=== PATIENT | male | born 1965 | race Caucasian/White ===

== ENCOUNTER 2016-04-27 16:07 | Emergency (ER) | payer MEDICARE ==
[2016-04-27 16:35] VITALS: BP 176/104; TEMP 98.4; O2SAT 96
[2016-04-27] MEDS ORDERED: ORPHENADRINE CITRATE 30 MG/ML AMP IM ONE (17:32)
[2016-04-27] MEDS ORDERED: KETOROLAC TROMETHAMINE INJ 60 MG/2 ML VIAL IM ONE (17:32)
--- NOTE | 2016-04-27 18:01 | ED.PDOC ---
History of Present Illness - General Chief Complaint: Upper Extremity Injury Stated Complaint: right shoulder pain Time Seen by Provider: 04/27/16 17:31 Source: patient, RN notes reviewed, Vital Signs reviewed Exam Limitations: no limitations - History of Present Illness Initial Comments: This 50 y/o male has had pain under his right scapula for the past 2 days. He was throwing brush into a truck several days ago. The pain started shortly thereafter. Patient rates it a 10/10. He denies any shortness of breath. Movement makes the pain worse. Timing/Duration: 1 week, getting worse Severity: severe Improving Factors: other - holding right arm up over head Worsening Factors: movement Associated Symptoms: denies symptoms Allergies/Adverse Reactions: Allergies NO KNOWN ALLERGY Allergy (Verified 01/15/16 16:05) Home Medications: Ambulatory Orders Colchicine [Colcrys] 0.6 mg PO BID 01/15/16 DULoxetine HCL [Cymbalta] 30 mg PO DAILY 01/15/16 Metoprolol Succinate [Toprol XL] 100 mg PO DAILY 01/15/16 Olmesartan Medoxomil-Hydrochlo [Benicar Hct] 1 tab PO DAILY 04/27/16 amLODIPine BESYLATE [Norvasc] 10 mg PO DAILY 04/27/16 Review of Systems - Review of Systems Constitutional: States: no symptoms reported EENTM: States: no symptoms reported Respiratory: States: no symptoms reported Cardiology: States: no symptoms reported Gastrointestinal/Abdominal: States: no symptoms reported Genitourinary: States: no symptoms reported Musculoskeletal: States: back pain, muscle pain Skin: States: no symptoms reported Neurological: States: no symptoms reported Endocrine: States: no symptoms reported Hematologic/Lymphatic: States: no symptoms reported All other Systems: Reviewed and Negative Past Medical History (General) - Patient Medical History Hx Seizures: No Hx Stroke: No Hx Dementia: No Hx Asthma: No Hx of COPD: No Hx Cardiac Disorders: No Hx Congestive Heart Failure: No Hx Pacemaker: No Hx Hypertension: Yes Hx Thyroid Disease: No Hx Diabetes: No Hx Gastroesophageal Reflux: No Hx Renal Disease: No Hx Cancer: No Hx of HIV: No Hx Hepatitis C: No Hx MRSA: No MRSA Source:: Wound - Vaccination History Hx Tetanus, Diphtheria Vaccination: Yes Hx Influenza Vaccination: No Hx Pneumococcal Vaccination: No - Social History Hx Tobacco Use: No Hx Chewing Tobacco Use: Yes Hx Alcohol Use: No Hx Substance Use: No Hx Substance Use Treatment: No Hx Depression: No Hx Physical Abuse: No Hx Emotional Abuse: No Hx Suspected Abuse: No - Female History Patient : No Family Medical History - Family History Maternal Family History: Unknown Name: mother Living Status: Cause of : cancer Hx Family Cancer: Yes - lung Paternal Family History: Unknown Name: father Living Status: Cause of : cancer Hx Family Cancer: Yes - lung and liver Physical Exam - Physical Exam General Appearance: Alert, Obvious distress Eye Exam: bilateral normal Ears, Nose, Throat: normal ENT inspection Neck: non-tender, full range of motion, supple, normal inspection Respiratory: chest non-tender, lungs clear, normal breath sounds, no respiratory distress, no accessory muscle use Cardiovascular/Chest: regular rate, rhythm, no edema, no gallop, no murmur Gastrointestinal/Abdominal: normal bowel sounds, soft Back Exam: no vertebral tenderness, muscle spasm - On right just inferior to angle of scapula Extremity: normal range of motion, normal inspection Neurologic: no motor/sensory deficits, alert, normal mood/affect, oriented x 3 Skin Exam: normal color, warm/dry Progress - EKG/XRAY/CT XRAY: chest Xray Comments: No acute process Departure - Departure Clinical Impression: Spasm of back muscles Upper back strain Qualifiers: Encounter type: initial encounter Qualifier Code: (S29.012A) Strain of muscle and tendon of back wall of thorax, initial encounter Disposition: Left Against Medical Advice Departure Forms: ED Discharge - Pt. Copy, Patient Portal Self Enrollment Referrals: Mark Mendoza MD [Primary Care Provider] - 1-2 Weeks Home Medications: Ambulatory Orders Colchicine [Colcrys] 0.6 mg PO BID 01/15/16 DULoxetine HCL [Cymbalta] 30 mg PO DAILY 01/15/16 Metoprolol Succinate [Toprol XL] 100 mg PO DAILY 01/15/16 Olmesartan Medoxomil-Hydrochlo [Benicar Hct] 1 tab PO DAILY 04/27/16 amLODIPine BESYLATE [Norvasc] 10 mg PO DAILY 04/27/16
--- NOTE | 2016-04-27 19:15 | RAD ---
EXAM DESCRIPTION: XR CHEST 2 VIEWS CLINICAL HISTORY: 50 y/o Mback pain under shoulder blade COMPARISON: 01/15/2016. FINDINGS: The cardiomediastinal silhouette appears unremarkable. No consolidating infiltrates or pleural effusions. No pneumothorax. No significant changes are visualized compared to the previous study. IMPRESSION: No acute abnormality is identified. Electronically signed by: Mateo Montes MD 04/27/2016 19:12
[2016-04-27] MEDS ORDERED: COLCHICINE 0.6 MG TAB PO SCH (21:00)
[2016-04-28] MEDS ORDERED: amLODIPine BESYLATE 5 MG TAB PO SCH (09:00)
[2016-04-28] MEDS ORDERED: OLMESARTAN MEDOXOMIL HYDROCHLO PO SCH (09:00)
[2016-04-28] MEDS ORDERED: METOPROLOL SUCCINATE XL 100 MG TAB PO SCH (09:00)
[2016-04-28] MEDS ORDERED: DULoxetine HCL 30 MG CAP PO SCH (09:00)
== END 2016-04-27 20:05 | disposition left against medical advice (07) ==
LOC: ER 16:07
DX: S29.012A Strain of muscle and tendon of back wall of thorax, initial encounter (principal); M62.830 Muscle spasm of back; I10 Essential (primary) hypertension; X58.XXXA Exposure to other specified factors, initial encounter; Z79.899 Other long term (current) drug therapy; Z87.891 Personal history of nicotine dependence; Z80.1 Family history of malignant neoplasm of trachea, bronchus and lung; Z80.8 Family history of malignant neoplasm of other organs or systems
CPT/HCPCS: 71020; J1885; J2360

== ENCOUNTER 2016-04-29 12:10 | Emergency (ER) | payer MEDICARE ==
[2016-04-29 12:28] VITALS: TEMP 98.4
[2016-04-29] MEDS ORDERED: KETOROLAC TROMETHAMINE INJ 60 MG/2 ML VIAL IM ONE (13:01)
[2016-04-29] MEDS ORDERED: methylPREDNISolone SODIUM SUC 125 MG/2 ML VIAL IM ONE (13:17)
[2016-04-29] MEDS ORDERED: ORPHENADRINE CITRATE 30 MG/ML AMP IM ONE (13:17)
--- NOTE | 2016-04-29 13:30 | ED.PDOC ---
History of Present Illness - General Chief Complaint: General Stated Complaint: rt shoulder pain Time Seen by Provider: 04/29/16 12:52 Source: patient, RN notes reviewed, Vital Signs reviewed Exam Limitations: no limitations - History of Present Illness Initial Comments: Patient is a 50 y/o male with a history of gout. He was working throwing brush into a truck and several days later had complaints of pain on the right underneath the shoulder blade. He was here for treatment 2 days ago, but left AMA. The pain has since worsened, and he thinks his gout has set in. The pain is a 10/10, a fiery pain. He can only hold his right arm abducted, over his head. Timing/Duration: getting worse, other - 3-4 days Severity: severe Improving Factors: other - Holding arm abducted with forearm over head Associated Symptoms: denies symptoms Allergies/Adverse Reactions: Allergies NO KNOWN ALLERGY Allergy (Verified 01/15/16 16:05) Home Medications: Ambulatory Orders Colchicine [Colcrys] 0.6 mg PO BID 01/15/16 DULoxetine HCL [Cymbalta] 30 mg PO DAILY 01/15/16 Metoprolol Succinate [Toprol XL] 100 mg PO DAILY 01/15/16 Olmesartan Medoxomil-Hydrochlo [Benicar Hct] 1 tab PO DAILY 04/27/16 amLODIPine BESYLATE [Norvasc] 10 mg PO DAILY 04/27/16 predniSONE [Prednisone] 40 mg PO DAILY #8 tab 04/29/16 Review of Systems - Review of Systems Constitutional: States: no symptoms reported EENTM: States: no symptoms reported Respiratory: States: no symptoms reported Cardiology: States: no symptoms reported Gastrointestinal/Abdominal: States: no symptoms reported Genitourinary: States: no symptoms reported Musculoskeletal: States: back pain, gout, muscle pain Skin: States: no symptoms reported Neurological: States: no symptoms reported Endocrine: States: no symptoms reported Hematologic/Lymphatic: States: no symptoms reported All other Systems: Reviewed and Negative Past Medical History (General) - Patient Medical History Hx Seizures: No Hx Stroke: No Hx Dementia: No Hx Asthma: No Hx of COPD: No Hx Cardiac Disorders: No Hx Congestive Heart Failure: No Hx Pacemaker: No Hx Hypertension: Yes Hx Thyroid Disease: No Hx Diabetes: No Hx Gastroesophageal Reflux: No Hx Renal Disease: No Hx Cancer: No Hx of HIV: No Hx Hepatitis C: No Hx MRSA: No MRSA Source:: Wound - Vaccination History Hx Tetanus, Diphtheria Vaccination: Yes Hx Influenza Vaccination: No Hx Pneumococcal Vaccination: No - Social History Hx Tobacco Use: No Hx Chewing Tobacco Use: Yes Hx Alcohol Use: No Hx Substance Use: No Hx Substance Use Treatment: No Hx Depression: No Feels Threatened In Home Enviroment: No Feels Threatened In a Relationship: No Hx Physical Abuse: No Hx Emotional Abuse: No Hx Suspected Abuse: No - Female History Patient : No Family Medical History - Family History Maternal Family History: Unknown Name: mother Living Status: Cause of : cancer Hx Family Cancer: Yes - lung Paternal Family History: Unknown Name: father Living Status: Cause of : cancer Hx Family Cancer: Yes - lung and liver Physical Exam - Physical Exam General Appearance: Agitated, Alert, Obvious distress Eye Exam: bilateral normal Ears, Nose, Throat: hearing grossly normal, normal ENT inspection Neck: full range of motion, supple, normal inspection Respiratory: chest non-tender, lungs clear, normal breath sounds, no respiratory distress, no accessory muscle use Cardiovascular/Chest: regular rate, rhythm, no edema, no gallop, no murmur Gastrointestinal/Abdominal: normal bowel sounds, soft Back Exam: no vertebral tenderness, muscle spasm - inferior to spine of scapula on the right, other Extremity: normal range of motion - but with pain in the back with adduction of the right arm, non-tender Neurologic: alert, normal mood/affect, oriented x 3 Skin Exam: normal color, warm/dry Progress - Results/Orders Results/Orders: 04/29/16 04/29/16 12:24 13:11 Temperature 98.4 F Pulse Rate [lt 91 H 78 radial] Respiratory 20 20 Rate Blood Pressure 178/101 198/105 [lt arm] O2 Sat by Pulse 95 98 Oximetry Laboratory Results Uric Acid 9.1 mg/dL (2.6-7.2) H 04/29/16 13:05 - Consult/PCP Time Called: 13:15 Consult/PCP: Emma Tomas M.D., Rheumatology Consult Reason/Comments: Per patient's request--prednisone 40 mg x 4 days Departure - Departure Clinical Impression: Acute gouty arthritis, Muscle spasm of back ICD-10 Supporting Text: Upper right Time of Disposition: 13:39 Disposition: Discharge to Home or Self Care Condition: Fair Departure Forms: ED Discharge - Pt. Copy, Patient Portal Self Enrollment Diet: resume usual diet Prescriptions: predniSONE [Prednisone] 40 mg PO DAILY #8 tab Home Medications: Ambulatory Orders Colchicine [Colcrys] 0.6 mg PO BID 01/15/16 DULoxetine HCL [Cymbalta] 30 mg PO DAILY 01/15/16 Metoprolol Succinate [Toprol XL] 100 mg PO DAILY 01/15/16 Olmesartan Medoxomil-Hydrochlo [Benicar Hct] 1 tab PO DAILY 04/27/16 amLODIPine BESYLATE [Norvasc] 10 mg PO DAILY 04/27/16 predniSONE [Prednisone] 40 mg PO DAILY #8 tab 04/29/16 Additional Instructions: If pain persists, follow up with PCP or Dr. Tomas.
[2016-04-29 13:34] VITALS: O2SAT 98
[2016-04-29 13:47] VITALS: BP 195/101
== END 2016-04-29 13:46 | disposition home or self-care (01) ==
LOC: ER 12:10
DX: M10.9 Gout, unspecified (principal); M62.830 Muscle spasm of back; Z80.1 Family history of malignant neoplasm of trachea, bronchus and lung; Z87.891 Personal history of nicotine dependence; Z79.899 Other long term (current) drug therapy; I10 Essential (primary) hypertension
CPT/HCPCS: 36415; 84550; J1885; J2360; J2930

== ENCOUNTER 2016-06-03 18:09 | Emergency (ER) | payer MEDICARE ==
[2016-06-03] MEDS ORDERED: ASPIRIN TABLET 325 MG TAB PO ONE (18:22)
[2016-06-03] MEDS ORDERED: HYDROmorphone HCL INJ 2 MG/ML VIAL IV SCH ×3 (18:30→22:00)
[2016-06-03] MEDS ORDERED: POTASSIUM CHLORIDE ELIXIR 20 MEQ/15 ML UD PO ONE (19:25)
[2016-06-03] MEDS ORDERED: NITROGLYCERIN 0.4 MG 25 EA TAB SL ONE ×2 (19:25→20:30)
[2016-06-03] MEDS ORDERED: METOPROLOL TARTRATE INJ 5 MG/5 ML VIAL IV ONE (19:46)
--- NOTE | 2016-06-03 20:01 | RAD ---
NAME: FAUSTO MELENDEZPROCEDURE: XR CHEST 2 VIEWSORDER DATE: 06/03/2016 6:21 PM CSTACCESSION NUMBER: [id number] CLINICAL HISTORY: htn, sob INDICATION: Same as above COMPARISON: 04/27/2016 TECHNIQUE: PA and and lateral chest radiographs were obtained. FINDINGS: The lung nicolas are well inflated. There are no discrete airspace infiltrates, pneumothoraces or pleural effusions. The pulmonary vascularity is normal The cardiomediastinal silhouette is unremarkable for patient's age and sex. IMPRESSION: There is no acute pleural-parenchymal process seen in the imaged lung nicolas. Place of interpretation: [facility]. Electronically signed by: Sukhjinder Cheng MD 06/03/2016 6:37 PM GLASS SAGGER
--- NOTE | 2016-06-03 20:29 | ED.PDOC ---
History of Present Illness - General Chief Complaint: Cardiovascular Problem Stated Complaint: chest tightness, high bp Time Seen by Provider: 06/03/16 18:21 Source: patient Exam Limitations: no limitations - History of Present Illness Initial Comments: the patient is a 51-year-old male presented emergency room secondary to elevated blood pressures today with associated mild to moderate headache and sensation of shortness of breath and pressure in his chest. No chest pain. Pressure has gotten a little worse over the last few hours prior to arrival. He had a similar episode back in December and was supposed to have gotten a stress test howver left the hospital before that could be done and did not get it done as an outpatient. He does have a long-standing history of significant hypertension with recent medication changes. He has not missed doses of his medications but he does take them all in the morning. When he was sent to [facility] in December, he apparently had MRI/MRA performed of his brain and saw Dr. Cerda at that time. He says no acute pathology was found at that time. Timing/Duration: 4-6 hours, constant, getting worse Severity: moderate Improving Factors: nothing Worsening Factors: nothing Allergies/Adverse Reactions: Allergies NO KNOWN ALLERGY Allergy (Verified 06/03/16 18:52) Home Medications: Ambulatory Orders Colchicine [Colcrys] 0.6 mg PO BID 01/15/16 DULoxetine HCL [Cymbalta] 30 mg PO DAILY 01/15/16 Metoprolol Succinate [Toprol XL] 100 mg PO DAILY 01/15/16 Olmesartan Medoxomil-Hydrochlo [Benicar Hct] 1 tab PO DAILY 04/27/16 amLODIPine BESYLATE [Norvasc] 10 mg PO DAILY 04/27/16 predniSONE [Prednisone] 40 mg PO DAILY #8 tab 04/29/16 Review of Systems - Review of Systems Constitutional: States: no symptoms reported EENTM: States: no symptoms reported Respiratory: States: short of breath Cardiology: States: see HPI Gastrointestinal/Abdominal: States: no symptoms reported Genitourinary: States: no symptoms reported Musculoskeletal: States: no symptoms reported Skin: States: no symptoms reported Neurological: States: headache All other Systems: No Change from Baseline Past Medical History (General) - Patient Medical History Hx Seizures: No Hx Stroke: No Hx Dementia: No Hx Asthma: No Hx of COPD: No Hx Cardiac Disorders: No Hx Congestive Heart Failure: No Hx Pacemaker: No Hx Hypertension: Yes Hx Thyroid Disease: No Hx Diabetes: No Hx Gastroesophageal Reflux: No Hx Renal Disease: No Hx Cancer: No Hx of HIV: No Hx Hepatitis C: No Hx MRSA: No MRSA Source:: Wound - Vaccination History Hx Tetanus, Diphtheria Vaccination: No Hx Influenza Vaccination: No Hx Pneumococcal Vaccination: No - Social History Hx Tobacco Use: No Hx Chewing Tobacco Use: Yes Hx Alcohol Use: No Hx Substance Use: No Hx Substance Use Treatment: No Hx Depression: No Hx Physical Abuse: No Hx Emotional Abuse: No Hx Suspected Abuse: No - Activities of Daily Living Hospice Agency (if applicable):: None - Female History Patient is a Female of Child Bearing Age (10 -59 yrs old): No Patient : No Family Medical History - Family History Maternal Family History: Unknown Name: mother Living Status: Cause of : cancer Hx Family Cancer: Yes - lung Paternal Family History: Unknown Name: father Living Status: Cause of : cancer Hx Family Cancer: Yes - lung and liver Physical Exam - Physical Exam General Appearance: Alert, Anxious, No apparent distress Eye Exam: bilateral normal Ears, Nose, Throat: hearing grossly normal, normal ENT inspection, normal pharynx Neck: non-tender, full range of motion, supple, normal inspection Respiratory: chest non-tender, lungs clear, normal breath sounds, no respiratory distress, no accessory muscle use Cardiovascular/Chest: normal peripheral pulses, regular rate, rhythm, no edema Peripheral Pulses: radial,right: 2+, radial,left: 2+ Gastrointestinal/Abdominal: normal bowel sounds, non tender, soft Rectal Exam: deferred Back Exam: normal inspection, no CVA tenderness Extremity: normal range of motion, non-tender, normal inspection, no pedal edema , normal capillary refill Neurologic: no motor/sensory deficits, alert, normal mood/affect, oriented x 3 Skin Exam: normal color Comments: 06/03/16 18:21 Telemetry .CONTINUOUS normal sinus rhythm 06/03/16 18:30 HYDROmorphone HCL INJ [Dilaudid INJ] 1 mg IV ONCE 06/03/16 19:30 EKG STAT shows normal sinus rhythm. No acute ST segment changes definitive for ischemia. He does have a small R wave in aVL. On the initial EKG there is also a small R wave in lead 3 that resolves on the second EKG. There is mild left atrial dilation. Laboratory Results - last 24 hr 06/03/16 18:30 WBC 11.0 H RBC 4.82 Hgb 14.5 Hct 43.0 MCV 89.2 MCH 30.0 MCHC 33.6 RDW 13.5 Plt Count 216 MPV 8.6 Absolute Neuts (auto) 6.90 H Absolute Lymphs (auto) 3.00 Absolute Monos (auto) 0.70 Absolute Eos (auto) 0.20 Absolute Basos (auto) 0.10 Neutrophils % 62.8 Lymphocytes % 27.6 Monocytes % 6.5 Eosinophils % 2.0 Basophils % 1.1 D-Dimer, Quantitative < 230 Sodium Cancelled Potassium Cancelled Chloride Cancelled Carbon Dioxide Cancelled Anion Gap Cancelled BUN Cancelled Creatinine Cancelled BUN/Creatinine Ratio Cancelled Random Glucose Cancelled Serum Osmolality Cancelled Calcium Cancelled Total Bilirubin Cancelled Direct Bilirubin < 0.1 Indirect Bilirubin 0.7 AST Cancelled ALT Cancelled Alkaline Phosphatase Cancelled Creatine Kinase 639 H* CK-MB (CK-2) 13.3 H* CK-MB (CK-2) % 2.08 Troponin I < 0.02 B-Natriuretic Peptide 31.3 Serum Total Protein Cancelled Albumin Cancelled Globulin Cancelled Albumin/Globulin Ratio Cancelled chest x-ray is within normal limits. Progress - Progress Progress: 06/03/16 20:33 the patient is a 51-year-old male presenting with hypertensive emergency and what appears to be an anginal equivalent and possibly developing into a non-ST elevation [place]. CK-MB is significantly elevated. Troponin is not yet elevated. EKGs are reassuring at this point. He has received aspirin, nitroglycerin, metoprolol as well as Lovenox and Plavix. he also did receive 1 dose of clonidine 0.2 mg and 1 dose of 1 mg Dilaudid. Shortness of breath does improve with the reduction in the blood pressure. Transferring for cardiology evaluation. 06/03/16 20:36 critical care time spent in not otherwise billable procedures 40 minutes. 06/03/16 20:36 - Results/Orders Results/Orders: Vital Signs - 24 hr 06/03/16 06/03/16 18:14 18:30 Temperature 97.7 F Pulse Rate [ 76 pulse ox] Respiratory 20 20 Rate Blood Pressure 184/108 [Right Arm] O2 Sat by Pulse 95 Oximetry systolic blood pressures are fallen to 140s Departure - Departure Clinical Impression: Uncontrolled hypertension, Unstable angina Disposition: Transfer to Hospital Home Medications: Ambulatory Orders Colchicine [Colcrys] 0.6 mg PO BID 01/15/16 DULoxetine HCL [Cymbalta] 30 mg PO DAILY 01/15/16 Metoprolol Succinate [Toprol XL] 100 mg PO DAILY 01/15/16 Olmesartan Medoxomil-Hydrochlo [Benicar Hct] 1 tab PO DAILY 04/27/16 amLODIPine BESYLATE [Norvasc] 10 mg PO DAILY 04/27/16 predniSONE [Prednisone] 40 mg PO DAILY #8 tab 04/29/16 Transfer to Outside Facility - Transfer Information Accepting Provider:: dr drake Accepting Facility: [facility] Reason for Transfer: required specialist not available
[2016-06-03] MEDS ORDERED: cloNIDine HCL 0.1 MG TAB PO ONE (20:30)
[2016-06-03] MEDS ORDERED: LISINOPRIL 10 MG TAB PO ONE (20:30)
[2016-06-03] MEDS ORDERED: CLOPIDOGREL 75 MG TAB PO ONE (20:34)
[2016-06-03] MEDS ORDERED: NITROGLYCERIN 2% 1 GM UD TOP ONE ×2 (20:51→20:53)
[2016-06-03] MEDS ORDERED: ENOXAPARIN SODIUM 100 MG/ML SYG SUBCU ONE ×2 (20:51→20:54)
[2016-06-03 21:20] VITALS: O2SAT 96
[2016-06-03 21:54] VITALS: BP 168/97; TEMP 97.9
--- NOTE | 2016-06-03 22:18 | RAD ---
NAME: FAUSTO MELENDEZPROCEDURE: XR CHEST 2 VIEWSORDER DATE: 06/03/2016 6:21 PM CSTACCESSION NUMBER: [id number] CLINICAL HISTORY: htn, sob INDICATION: Same as above COMPARISON: 04/27/2016 TECHNIQUE: PA and and lateral chest radiographs were obtained. FINDINGS: The lung nicolas are well inflated. There are no discrete airspace infiltrates, pneumothoraces or pleural effusions. The pulmonary vascularity is normal The cardiomediastinal silhouette is unremarkable for patient's age and sex. IMPRESSION: There is no acute pleural-parenchymal process seen in the imaged lung nicolas. Place of interpretation: [facility]. Electronically signed by: Sukhjinder Cheng MD 06/03/2016 6:37 PM GUN MECHANIC
--- NOTE | 2016-06-04 11:58 | RAD ---
NAME: FAUSTO MELENDEZPROCEDURE: XR CHEST 2 VIEWSORDER DATE: 06/03/2016 6:21 PM CSTACCESSION NUMBER: [id number] CLINICAL HISTORY: htn, sob INDICATION: Same as above COMPARISON: 04/27/2016 TECHNIQUE: PA and and lateral chest radiographs were obtained. FINDINGS: The lung nicolas are well inflated. There are no discrete airspace infiltrates, pneumothoraces or pleural effusions. The pulmonary vascularity is normal The cardiomediastinal silhouette is unremarkable for patient's age and sex. IMPRESSION: There is no acute pleural-parenchymal process seen in the imaged lung nicolas. Place of interpretation: [facility]. Electronically signed by: Sukhjinder Cheng MD 06/03/2016 6:37 PM EDUCATION DEPARTMENT CHAIR
--- NOTE | 2016-06-22 23:55 | RAD ---
NAME: FAUSTO MELENDEZPROCEDURE: XR CHEST 2 VIEWSORDER DATE: 06/03/2016 6:21 PM CSTACCESSION NUMBER: [id number] CLINICAL HISTORY: htn, sob INDICATION: Same as above COMPARISON: 04/27/2016 TECHNIQUE: PA and and lateral chest radiographs were obtained. FINDINGS: The lung nicolas are well inflated. There are no discrete airspace infiltrates, pneumothoraces or pleural effusions. The pulmonary vascularity is normal The cardiomediastinal silhouette is unremarkable for patient's age and sex. IMPRESSION: There is no acute pleural-parenchymal process seen in the imaged lung nicolas. Place of interpretation: [facility]eler[facility]iology. Electronically signed by: Sukhjinder Cheng MD 06/03/2016 6:37 PM TABLE TOP TILE SETTER
--- NOTE | 2016-06-22 23:55 | RAD ---
NAME: FAUSTO MELENDEZPROCEDURE: XR CHEST 2 VIEWSORDER DATE: 06/03/2016 6:21 PM CSTACCESSION NUMBER: [id number] CLINICAL HISTORY: htn, sob INDICATION: Same as above COMPARISON: 04/27/2016 TECHNIQUE: PA and and lateral chest radiographs were obtained. FINDINGS: The lung nicolas are well inflated. There are no discrete airspace infiltrates, pneumothoraces or pleural effusions. The pulmonary vascularity is normal The cardiomediastinal silhouette is unremarkable for patient's age and sex. IMPRESSION: There is no acute pleural-parenchymal process seen in the imaged lung nicolas. Place of interpretation: [facility]. Electronically signed by: Sukhjinder Cheng MD 06/03/2016 6:37 PM BACKGROUND CHECK COORDINATOR
--- NOTE | 2016-06-22 23:56 | RAD ---
NAME: FAUSTO MELENDEZPROCEDURE: XR CHEST 2 VIEWSORDER DATE: 06/03/2016 6:21 PM CSTACCESSION NUMBER: [id number] CLINICAL HISTORY: htn, sob INDICATION: Same as above COMPARISON: 04/27/2016 TECHNIQUE: PA and and lateral chest radiographs were obtained. FINDINGS: The lung nicolas are well inflated. There are no discrete airspace infiltrates, pneumothoraces or pleural effusions. The pulmonary vascularity is normal The cardiomediastinal silhouette is unremarkable for patient's age and sex. IMPRESSION: There is no acute pleural-parenchymal process seen in the imaged lung nicolas. Place of interpretation: [facility]. Electronically signed by: Sukhjinder Cheng MD 06/03/2016 6:37 PM DIVERSITY INTERN
--- NOTE | 2016-06-23 07:36 | RAD ---
NAME: FAUSTO MELENDEZPROCEDURE: XR CHEST 2 VIEWSORDER DATE: 06/03/2016 6:21 PM CSTACCESSION NUMBER: [id number] CLINICAL HISTORY: htn, sob INDICATION: Same as above COMPARISON: 04/27/2016 TECHNIQUE: PA and and lateral chest radiographs were obtained. FINDINGS: The lung nicolas are well inflated. There are no discrete airspace infiltrates, pneumothoraces or pleural effusions. The pulmonary vascularity is normal The cardiomediastinal silhouette is unremarkable for patient's age and sex. IMPRESSION: There is no acute pleural-parenchymal process seen in the imaged lung nicolas. Place of interpretation: [facility]. Electronically signed by: Sukhjinder Cheng MD 06/03/2016 6:37 PM MICROFILM DUPLICATING UNIT SUPERVISOR
--- NOTE | 2016-06-23 07:37 | RAD ---
NAME: FAUSTO MELENDEZPROCEDURE: XR CHEST 2 VIEWSORDER DATE: 06/03/2016 6:21 PM CSTACCESSION NUMBER: [id number] CLINICAL HISTORY: htn, sob INDICATION: Same as above COMPARISON: 04/27/2016 TECHNIQUE: PA and and lateral chest radiographs were obtained. FINDINGS: The lung nicolas are well inflated. There are no discrete airspace infiltrates, pneumothoraces or pleural effusions. The pulmonary vascularity is normal The cardiomediastinal silhouette is unremarkable for patient's age and sex. IMPRESSION: There is no acute pleural-parenchymal process seen in the imaged lung nicolas. Place of interpretation: T[facility]iology. Electronically signed by: Sukhjinder Cheng MD 06/03/2016 6:37 PM CDL COMPANY DRIVER
--- NOTE | 2016-06-23 07:38 | RAD ---
NAME: FAUSTO MELENDEZPROCEDURE: XR CHEST 2 VIEWSORDER DATE: 06/03/2016 6:21 PM CSTACCESSION NUMBER: [id number] CLINICAL HISTORY: htn, sob INDICATION: Same as above COMPARISON: 04/27/2016 TECHNIQUE: PA and and lateral chest radiographs were obtained. FINDINGS: The lung nicolas are well inflated. There are no discrete airspace infiltrates, pneumothoraces or pleural effusions. The pulmonary vascularity is normal The cardiomediastinal silhouette is unremarkable for patient's age and sex. IMPRESSION: There is no acute pleural-parenchymal process seen in the imaged lung nicolas. Place of interpretation: Teleradiology. Electronically signed by: Sukhjinder Cheng MD 06/03/2016 6:37 PM MOLD PRESSER
== END 2016-06-03 21:50 | disposition short-term general hospital (02) ==
LOC: ER 18:09
DX: I20.0 Unstable angina (principal); I10 Essential (primary) hypertension; Z79.899 Other long term (current) drug therapy
CPT/HCPCS: 36415; 71020; 80048; 80076; 82550; 82553; 83880; 84484; 85025; 85379; 87804; 93005; J1170; J1650

== ENCOUNTER 2016-07-07 20:49 | Emergency (ER) | payer MEDICARE ==
[2016-07-07 22:02] VITALS: O2SAT 98
--- NOTE | 2016-07-07 22:05 | ED.PDOC ---
History of Present Illness - General Chief Complaint: Lower Extremity Injury Stated Complaint: Rt knee pain Time Seen by Provider: 07/07/16 21:58 Source: patient Exam Limitations: no limitations - History of Present Illness Initial Comments: Terence Berry 51 y/o male with gouty arthritis stated that he picked up stuff on the floor with right knee bent then on standing up felt pain then noted swelling this afternoon;denies history of fall. Occurred: this morning Pain - Lower Extremity: moderate: Right Knee Method of Injury: other - bent his knee right Improving Factors: rest Worsening Factors: movement Associated Symptoms: pain /swelling Allergies/Adverse Reactions: Allergies NO KNOWN ALLERGY Allergy (Verified 06/03/16 18:52) Home Medications: Ambulatory Orders Colchicine [Colcrys] 0.6 mg PO BID 01/15/16 DULoxetine HCL [Cymbalta] 30 mg PO DAILY 01/15/16 Metoprolol Succinate [Toprol XL] 100 mg PO DAILY 01/15/16 amLODIPine BESYLATE [Norvasc] 10 mg PO DAILY 04/27/16 Hydrochlorothiazide 25 mg PO 07/07/16 Naproxen Sodium [Aleve Arthritis] 220 mg PO BID PRN #20 tab 07/07/16 predniSONE [Prednisone] 10 mg PO BID #10 tab 07/07/16 Review of Systems - Review of Systems Constitutional: States: no symptoms reported EENTM: States: no symptoms reported Respiratory: States: no symptoms reported Cardiology: States: no symptoms reported Gastrointestinal/Abdominal: States: no symptoms reported Genitourinary: States: no symptoms reported Musculoskeletal: States: see HPI Skin: States: no symptoms reported Neurological: States: no symptoms reported Endocrine: States: no symptoms reported Hematologic/Lymphatic: States: no symptoms reported Past Medical History (General) - Patient Medical History Hx Seizures: No Hx Stroke: No Hx Dementia: No Hx Asthma: No Hx of COPD: No Hx Cardiac Disorders: No Hx Congestive Heart Failure: No Hx Pacemaker: No Hx Hypertension: Yes Hx Thyroid Disease: No Hx Diabetes: No Hx Gastroesophageal Reflux: No Hx Renal Disease: No Hx Cancer: No Hx of HIV: No Hx Hepatitis C: No Hx MRSA: No Hx Other PMH: Yes - gout MRSA Source:: Wound Surgical History: other - left knee - Vaccination History Hx Tetanus, Diphtheria Vaccination: No Hx Influenza Vaccination: No Hx Pneumococcal Vaccination: No - Social History Hx Tobacco Use: No Hx Chewing Tobacco Use: Yes Hx Alcohol Use: No Hx Substance Use: No Hx Substance Use Treatment: No Hx Depression: No Hx Physical Abuse: No Hx Emotional Abuse: No Hx Suspected Abuse: No - Activities of Daily Living Patient Lives Alone: No - family - Female History Patient : No Family Medical History - Family History Maternal Family History: No Known Name: mother Living Status: Cause of : cancer Hx Family Cancer: Yes - lung Paternal Family History: Unknown Name: father Living Status: Cause of : cancer Hx Family Cancer: Yes - lung and liver Physical Exam - Physical Exam General Appearance: Alert, Comfortable, No apparent distress Eyes, Ears, Nose, Throat: PERRL/EOMI, normal ENT inspection, TMs normal Neck: non-tender, full range of motion, supple Cardiovascular/Respiratory: regular rate, rhythm, no M/R/G, normal peripheral pulses, no JVD, normal breath sounds Gastrointestinal/Abdominal: non-tender, no organomegaly Back: normal inspection, no CVA tenderness, no vertebral tenderness, CVA tenderness (R), CVA tenderness (L) Thigh/Hip: normal inspection, non-tender, no evidence of injury Leg: normal inspection, non-tender, no evidence of injury Knee: soft tissue tenderness - right knee, swelling - right knee, other - no instability noted on exam left knee joint Ankle: non-tender, no evidence of injury Foot: non-tender, no evidence of injury Progress - EKG/XRAY/CT XRAY: knee - right chodrocalcinosis no fracture noted Departure - Departure Clinical Impression: Strain of knee Qualifiers: Qualifier Code: (S86.911A) Strain of unspecified muscle(s) and tendon(s) at lower leg level, right leg, initial encounter Time of Disposition: 22:31 Disposition: Discharge to Home or Self Care Condition: Good Departure Forms: ED Discharge - Pt. Copy, Patient Portal Self Enrollment Referrals: Mark Mendoza MD [Primary Care Provider] - 1-2 Weeks Prescriptions: Naproxen Sodium [Aleve Arthritis] 220 mg PO BID PRN #20 tab PRN Reason: Pain predniSONE [Prednisone] 10 mg PO BID #10 tab Home Medications: Ambulatory Orders Colchicine [Colcrys] 0.6 mg PO BID 01/15/16 DULoxetine HCL [Cymbalta] 30 mg PO DAILY 01/15/16 Metoprolol Succinate [Toprol XL] 100 mg PO DAILY 01/15/16 amLODIPine BESYLATE [Norvasc] 10 mg PO DAILY 04/27/16 Hydrochlorothiazide 25 mg PO 07/07/16 Naproxen Sodium [Aleve Arthritis] 220 mg PO BID PRN #20 tab 07/07/16 predniSONE [Prednisone] 10 mg PO BID #10 tab 07/07/16
[2016-07-07] MEDS ORDERED: KETOROLAC TROMETHAMINE INJ 30 MG/ML VIAL IM ONE (22:15)
[2016-07-07] MEDS ORDERED: DEXAMETHASONE INJ 4 MG/ML VIAL IM ONE (22:15)
[2016-07-07] MEDS ORDERED: HYDROCOD/APAP 7.5/325 (ER DISP) #3 TAB PO ONE (22:16)
--- NOTE | 2016-07-07 22:28 | RAD ---
EXAM DESCRIPTION: Knee,Right 2 or More Views CLINICAL HISTORY: pain COMPARISON: None FINDINGS: AP, lateral and sunrise view of the right knee were submitted. Calcifications at the level of the menisci compatible with chondrocalcinosis. There is osteophytic formation mainly within the medial and patellofemoral compartment. There is no acute fracture or dislocation. Bone mineralization is within normal limits. There is no suprapatellar joint fluid collection. IMPRESSION: No acute abnormalities. Electronically signed by: Jah Du MD 07/07/2016 10:26 PM CDT
[2016-07-07 23:09] VITALS: BP 162/93; TEMP 97.8
== END 2016-07-07 23:09 | disposition home or self-care (01) ==
LOC: ER 20:49
DX: S86.911A Strain of unspecified muscle(s) and tendon(s) at lower leg level, right leg, initial encounter (principal); M10.9 Gout, unspecified; I10 Essential (primary) hypertension; X50.1XXA Overexertion from prolonged static or awkward postures, initial encounter; Z79.899 Other long term (current) drug therapy
CPT/HCPCS: 73560; J1100; J1885

== ENCOUNTER 2016-07-10 15:37 | Emergency (ER) | payer MEDICARE ==
[2016-07-10] MEDS ORDERED: KETOROLAC TROMETHAMINE INJ 30 MG/ML VIAL IM ONE (18:01)
--- NOTE | 2016-07-10 18:04 | ED.PDOC ---
History of Present Illness - General Chief Complaint: General Time Seen by Provider: 07/10/16 17:54 Source: patient Exam Limitations: no limitations - History of Present Illness Initial Comments: Patient presents with acute on chronic gouty arthritis of the right knee. He was here this week already and received a steroid injection and prednisone tablets. He still is taking the prednisone. He also takes colchicine and naproxen. He has an appointment in 5 days with a specialist that he says is going to give him an IV treatment for the gout. Pain is in the right knee joint , throbbing, worse with movement better with rest, multiple previous episodes. Timing/Duration: changing over time Severity: moderate Improving Factors: rest Worsening Factors: movement Associated Symptoms: denies symptoms Allergies/Adverse Reactions: Allergies NO KNOWN ALLERGY Allergy (Verified 06/03/16 18:52) Home Medications: Ambulatory Orders Colchicine [Colcrys] 0.6 mg PO BID 01/15/16 DULoxetine HCL [Cymbalta] 30 mg PO DAILY 01/15/16 Metoprolol Succinate [Toprol XL] 100 mg PO DAILY 01/15/16 amLODIPine BESYLATE [Norvasc] 10 mg PO DAILY 04/27/16 Hydrochlorothiazide 25 mg PO 07/07/16 Naproxen Sodium [Aleve Arthritis] 220 mg PO BID PRN #20 tab 07/07/16 predniSONE [Prednisone] 10 mg PO BID #10 tab 07/07/16 Ketorolac Tromethamine [Toradol Tabs] 10 mg PO Q6HR #16 tab 07/10/16 Review of Systems - Review of Systems Constitutional: States: no symptoms reported EENTM: States: no symptoms reported Respiratory: States: no symptoms reported Cardiology: States: no symptoms reported Gastrointestinal/Abdominal: States: no symptoms reported Genitourinary: States: no symptoms reported Musculoskeletal: States: see HPI Skin: States: no symptoms reported Neurological: States: no symptoms reported Endocrine: States: no symptoms reported Hematologic/Lymphatic: States: no symptoms reported Past Medical History (General) - Patient Medical History Hx Seizures: No Hx Stroke: No Hx Dementia: No Hx Asthma: No Hx of COPD: No Hx Cardiac Disorders: No Hx Congestive Heart Failure: No Hx Pacemaker: No Hx Hypertension: Yes Hx Thyroid Disease: No Hx Diabetes: No Hx Gastroesophageal Reflux: No Hx Renal Disease: No Hx Cancer: No Hx of HIV: No Hx Hepatitis C: No Hx MRSA: No MRSA Source:: Wound - Vaccination History Hx Tetanus, Diphtheria Vaccination: No Hx Influenza Vaccination: No Hx Pneumococcal Vaccination: No - Social History Hx Tobacco Use: No Hx Chewing Tobacco Use: Yes Hx Alcohol Use: No Hx Substance Use: No Hx Substance Use Treatment: No Hx Depression: No Hx Physical Abuse: No Hx Emotional Abuse: No Hx Suspected Abuse: No - Female History Patient : No Family Medical History - Family History Maternal Family History: No Known Name: mother Living Status: Cause of : cancer Hx Family Cancer: Yes - lung Paternal Family History: Unknown Name: father Living Status: Cause of : cancer Hx Family Cancer: Yes - lung and liver Physical Exam - Physical Exam General Appearance: Alert Respiratory: lungs clear Cardiovascular/Chest: regular rate, rhythm Gastrointestinal/Abdominal: normal bowel sounds, non tender, soft Extremity: other - right knee is warm, mildly swollen, non-erythmatic, and TTP. AROM and PROM are painful. Progress - Progress Progress: 07/10/16 18:08 Toradol 30 mg IM x one. Departure - Departure Clinical Impression: Gout of right knee Disposition: Discharge to Home or Self Care Condition: Good Departure Forms: ED Discharge - Pt. Copy, Patient Portal Self Enrollment Diet: resume usual diet Activity: increase activity as tolerated Prescriptions: Ketorolac Tromethamine [Toradol Tabs] 10 mg PO Q6HR #16 tab Home Medications: Ambulatory Orders Colchicine [Colcrys] 0.6 mg PO BID 01/15/16 DULoxetine HCL [Cymbalta] 30 mg PO DAILY 01/15/16 Metoprolol Succinate [Toprol XL] 100 mg PO DAILY 01/15/16 amLODIPine BESYLATE [Norvasc] 10 mg PO DAILY 04/27/16 Hydrochlorothiazide 25 mg PO 07/07/16 Naproxen Sodium [Aleve Arthritis] 220 mg PO BID PRN #20 tab 07/07/16 predniSONE [Prednisone] 10 mg PO BID #10 tab 07/07/16 Ketorolac Tromethamine [Toradol Tabs] 10 mg PO Q6HR #16 tab 07/10/16 Additional Instructions: Follow up with your scheduled appointment with the specialist.
[2016-07-12 07:44] VITALS: TEMP 98
[2016-07-12 07:49] VITALS: BP 178/98; O2SAT 99
== END 2016-07-10 18:10 | disposition home or self-care (01) ==
LOC: ER 15:37
DX: M10.9 Gout, unspecified (principal); I10 Essential (primary) hypertension; Z79.899 Other long term (current) drug therapy; Z87.891 Personal history of nicotine dependence

== ENCOUNTER 2016-07-12 11:02 | Emergency (ER) | payer MEDICARE ==
[2016-07-12] MEDS ORDERED: methylPREDNISolone SODIUM SUC 500 MG in SODIUM CHLORIDE 0.9% 250ML 250 ML IVPB ONE (12:22)
[2016-07-12] MEDS ORDERED: HYDROmorphone HCL INJ 2 MG/ML VIAL IV ONE ×3 (12:22→14:37)
[2016-07-12] MEDS ORDERED: SODIUM CHLORIDE 0.9% 1000ML 1,000 ML IVS ONE (12:22)
[2016-07-12 12:30] VITALS: TEMP 98.7
[2016-07-12] MEDS ORDERED: METHYLPREDNISOLONE SODIUM SUC ONE (12:49)
[2016-07-12] MEDS ORDERED: SODIUM CHLORIDE 0.9% 250ML 250 ML ONE (12:49)
--- NOTE | 2016-07-12 14:40 | ED.PDOC ---
History of Present Illness - General Chief Complaint: General Stated Complaint: (R) knee swelling, redness Time Seen by Provider: 07/12/16 11:20 Source: patient, RN notes reviewed, Vital Signs reviewed Exam Limitations: no limitations - History of Present Illness Initial Comments: Patient with severe gout flare. He reports occasionally it gets this bad and his Color Control Operator with give him Solumedrol 500mg IV QD X 3 days. He has been seen here twice in the past week. Nurse reports his knee looks worse than his last visit. The pain is so severe he is not able to sleep or move well. Timing/Duration: 1 week Severity: severe Improving Factors: nothing Worsening Factors: movement Associated Symptoms: denies symptoms Allergies/Adverse Reactions: Allergies NO KNOWN ALLERGY Allergy (Verified 07/12/16 12:30) Home Medications: Ambulatory Orders Colchicine [Colcrys] 0.6 mg PO BID 01/15/16 DULoxetine HCL [Cymbalta] 30 mg PO DAILY 01/15/16 Metoprolol Succinate [Toprol XL] 100 mg PO DAILY 01/15/16 amLODIPine BESYLATE [Norvasc] 10 mg PO DAILY 04/27/16 Hydrochlorothiazide 25 mg PO DAILY 07/07/16 Naproxen Sodium [Aleve Arthritis] 220 mg PO BID PRN #20 tab 07/07/16 predniSONE [Prednisone] 10 mg PO BID #10 tab 07/07/16 Ketorolac Tromethamine [Toradol Tabs] 10 mg PO Q6HR #16 tab 07/10/16 Acetaminophen W/ Codeine [Tylenol W/ CODEINE #3] 2 ea PO Q4HR PRN #20 07/12/16 Review of Systems - Review of Systems Constitutional: States: no symptoms reported. Denies: chills, fever EENTM: States: no symptoms reported Respiratory: States: no symptoms reported Cardiology: States: no symptoms reported Gastrointestinal/Abdominal: States: no symptoms reported Musculoskeletal: States: see HPI, joint pain - R knee, joint swelling - R knee Skin: States: see HPI, change in color - Erythema & warrmth Endocrine: States: no symptoms reported Hematologic/Lymphatic: States: no symptoms reported Past Medical History (General) - Patient Medical History Hx Seizures: No Hx Stroke: No Hx Dementia: No Hx Asthma: No Hx of COPD: No Hx Cardiac Disorders: No Hx Congestive Heart Failure: No Hx Pacemaker: No Hx Hypertension: Yes Hx Thyroid Disease: No Hx Diabetes: No Hx Gastroesophageal Reflux: No Hx Renal Disease: No Hx Cancer: No Hx of HIV: No Hx Hepatitis C: No Hx MRSA: No MRSA Source:: Wound - Vaccination History Hx Tetanus, Diphtheria Vaccination: No Hx Influenza Vaccination: No Hx Pneumococcal Vaccination: No - Social History Hx Tobacco Use: No Hx Chewing Tobacco Use: Yes Hx Alcohol Use: No Hx Substance Use: No Hx Substance Use Treatment: No Hx Depression: No Hx Physical Abuse: No Hx Emotional Abuse: No Hx Suspected Abuse: No - Female History Patient : No Family Medical History - Family History Maternal Family History: No Known Name: mother Living Status: Cause of : cancer Hx Family Cancer: Yes - lung Paternal Family History: Unknown Name: father Living Status: Cause of : cancer Hx Family Cancer: Yes - lung and liver Physical Exam - Physical Exam General Appearance: Alert, No apparent distress, Obvious distress, Well Developed, Well Groomed, Well Hydrated, Well Nourished Neck: non-tender, full range of motion, supple, normal inspection Respiratory: chest non-tender, lungs clear, normal breath sounds, no respiratory distress, no accessory muscle use Cardiovascular/Chest: normal peripheral pulses, regular rate, rhythm, no edema, no gallop, no JVD, no murmur Peripheral Pulses: posterior tibialis,right: 2+, posterior tibialis,left: 2+ Extremity: inflammation - R knee, swelling - Right knee, other - Decreased ROM R knee due to pain and joint effusion Neurologic: no motor/sensory deficits, alert, normal mood/affect, oriented x 3 Skin Exam: normal color - except R knee - etyematous and hot Lymphatic: no adenopathy Progress - Progress Progress: 07/12/16 14:42 Pain improved some with pain medication and steroids Will send home with Tyl #3 Advised if needed OK to return to ER for additional steroid infusions. Departure - Departure Clinical Impression: Acute gouty arthritis, Gout of right knee Time of Disposition: 14:43 Disposition: Discharge to Home or Self Care Condition: Good Departure Forms: ED Discharge - Pt. Copy, Patient Portal Self Enrollment Diet: other - Low Purine Diet Activity: increase activity as tolerated Referrals: Mark Mendoza MD [Primary Care Provider] - 1-5 Days Prescriptions: Acetaminophen W/ Codeine [Tylenol W/ CODEINE #3] 2 ea PO Q4HR PRN #20 PRN Reason: Moderate To Severe Pain Home Medications: Ambulatory Orders Colchicine [Colcrys] 0.6 mg PO BID 01/15/16 DULoxetine HCL [Cymbalta] 30 mg PO DAILY 01/15/16 Metoprolol Succinate [Toprol XL] 100 mg PO DAILY 01/15/16 amLODIPine BESYLATE [Norvasc] 10 mg PO DAILY 04/27/16 Hydrochlorothiazide 25 mg PO DAILY 07/07/16 Naproxen Sodium [Aleve Arthritis] 220 mg PO BID PRN #20 tab 07/07/16 predniSONE [Prednisone] 10 mg PO BID #10 tab 07/07/16 Ketorolac Tromethamine [Toradol Tabs] 10 mg PO Q6HR #16 tab 07/10/16 Acetaminophen W/ Codeine [Tylenol W/ CODEINE #3] 2 ea PO Q4HR PRN #20 07/12/16
[2016-07-12 15:21] VITALS: BP 171/94; O2SAT 99
== END 2016-07-12 15:07 | disposition home or self-care (01) ==
LOC: ER 11:02
DX: M10.9 Gout, unspecified (principal); I10 Essential (primary) hypertension; Z79.899 Other long term (current) drug therapy; Z87.891 Personal history of nicotine dependence
CPT/HCPCS: J1170; J7030; J7050

== ENCOUNTER 2016-07-13 16:32 | Emergency (ER) | payer MEDICARE ==
[2016-07-13 16:46] VITALS: TEMP 99
--- NOTE | 2016-07-13 16:59 | ED.PDOC ---
History of Present Illness - General Chief Complaint: General Stated Complaint: right knee swelling and discomfort Time Seen by Provider: 07/13/16 16:55 Source: patient, RN notes reviewed, Vital Signs reviewed Exam Limitations: no limitations - History of Present Illness Initial Comments: Patient returns today with continued pain and swelling from gout attack in his right knee. Steroid infusion helped some but he felt the pain was starting to worsen again today. Timing/Duration: 1 week Severity: moderate Improving Factors: medication, rest Worsening Factors: movement Associated Symptoms: headaches Allergies/Adverse Reactions: Allergies NO KNOWN ALLERGY Allergy (Verified 07/13/16 16:39) Home Medications: Ambulatory Orders Colchicine [Colcrys] 0.6 mg PO BID 01/15/16 DULoxetine HCL [Cymbalta] 30 mg PO DAILY 01/15/16 Metoprolol Succinate [Toprol XL] 100 mg PO DAILY 01/15/16 amLODIPine BESYLATE [Norvasc] 10 mg PO DAILY 04/27/16 Hydrochlorothiazide 25 mg PO DAILY 07/07/16 Naproxen Sodium [Aleve Arthritis] 220 mg PO BID PRN #20 tab 07/07/16 Ketorolac Tromethamine [Toradol Tabs] 10 mg PO Q6HR #16 tab 07/10/16 Acetaminophen W/ Codeine [Tylenol W/ CODEINE #3] 2 ea PO Q4HR PRN #20 07/12/16 Review of Systems - Review of Systems Constitutional: States: no symptoms reported Respiratory: States: no symptoms reported Cardiology: States: no symptoms reported Gastrointestinal/Abdominal: States: no symptoms reported Musculoskeletal: States: joint pain - R knee, joint swelling - R knee - less swollen than yesterday. Skin: States: see HPI, change in color - R knee - erythematous and hot to touch but less erythema than yesterday. Past Medical History (General) - Patient Medical History Hx Seizures: No Hx Stroke: No Hx Dementia: No Hx Asthma: No Hx of COPD: No Hx Cardiac Disorders: No Hx Congestive Heart Failure: No Hx Pacemaker: No Hx Hypertension: Yes Hx Thyroid Disease: No Hx Diabetes: No Hx Gastroesophageal Reflux: No Hx Renal Disease: No Hx Cancer: No Hx of HIV: No Hx Hepatitis C: No Hx MRSA: No MRSA Source:: Wound - Vaccination History Hx Tetanus, Diphtheria Vaccination: No Hx Influenza Vaccination: No Hx Pneumococcal Vaccination: No - Social History Hx Tobacco Use: No Hx Chewing Tobacco Use: Yes Hx Alcohol Use: No Hx Substance Use: No Hx Substance Use Treatment: No Hx Depression: No Hx Physical Abuse: No Hx Emotional Abuse: No Hx Suspected Abuse: No - Female History Patient : No Family Medical History - Family History Maternal Family History: No Known Name: mother Living Status: Cause of : cancer Hx Family Cancer: Yes - lung Paternal Family History: Unknown Name: father Living Status: Cause of : cancer Hx Family Cancer: Yes - lung and liver Physical Exam - Physical Exam General Appearance: Alert, No apparent distress, Well Developed, Well Groomed, Well Hydrated, Well Nourished Extremity: inflammation, swelling, other - R knee - joint effusion with erythema and skin is hot to touch - less so than yesterday. Limited ROM due to pain but only slight limp while walking, gait improved from yesterday. Neurologic: no motor/sensory deficits, alert, normal mood/affect, oriented x 3 Skin Exam: other - R knee - anterior/medial - erythematous and hot to touch. Departure - Departure Clinical Impression: Acute gouty arthritis ICD-10 Supporting Text: Improving Time of Disposition: 18:16 Disposition: Discharge to Home or Self Care Condition: Good Departure Forms: ED Discharge - Pt. Copy, Patient Portal Self Enrollment Instructions: DI for Gout Diet: resume usual diet Activity: ambulate only with walker Home Medications: Ambulatory Orders Colchicine [Colcrys] 0.6 mg PO BID 01/15/16 DULoxetine HCL [Cymbalta] 30 mg PO DAILY 01/15/16 Metoprolol Succinate [Toprol XL] 100 mg PO DAILY 01/15/16 amLODIPine BESYLATE [Norvasc] 10 mg PO DAILY 04/27/16 Hydrochlorothiazide 25 mg PO DAILY 07/07/16 Naproxen Sodium [Aleve Arthritis] 220 mg PO BID PRN #20 tab 07/07/16 Ketorolac Tromethamine [Toradol Tabs] 10 mg PO Q6HR #16 tab 07/10/16 Acetaminophen W/ Codeine [Tylenol W/ CODEINE #3] 2 ea PO Q4HR PRN #20 07/12/16 Additional Instructions: Continue current medications and keep follow up on Thursday with Game Programer
[2016-07-13] MEDS ORDERED: SODIUM CHLORIDE 0.9% 250ML 250 ML ONE (17:04)
[2016-07-13] MEDS ORDERED: METHYLPREDNISOLONE SODIUM SUC ONE (17:04)
[2016-07-13] MEDS: methylPREDNISolone SODIUM SUC 500 MG in SODIUM CHLORIDE 0.9% 250ML 250 ML IVPB ONE (17:05)
[2016-07-13] MEDS: KETOROLAC TROMETHAMINE INJ 30 MG/ML VIAL IV ONE (17:05)
[2016-07-13] MEDS: HYDROmorphone HCL INJ 2 MG/ML VIAL IV ONE (17:50)
[2016-07-13] MEDS ORDERED: SODIUM CHLORIDE 0.9% 10 ML VIAL ONE (17:51)
[2016-07-13 18:39] VITALS: BP 163/98; O2SAT 96
== END 2016-07-13 18:34 | disposition home or self-care (01) ==
LOC: ER 16:32
DX: M10.9 Gout, unspecified (principal); I10 Essential (primary) hypertension; Z79.899 Other long term (current) drug therapy; Z87.891 Personal history of nicotine dependence
CPT/HCPCS: J1170; J1885; J7050

== ENCOUNTER 2016-09-10 17:56 | Emergency (ER) | payer MEDICARE ==
[2016-09-10 18:43] VITALS: O2SAT 95
[2016-09-10] MEDS ORDERED: KETOROLAC TROMETHAMINE INJ 30 MG/ML VIAL IM ONE (18:45)
[2016-09-10] MEDS ORDERED: methylPREDNISolone SODIUM SUC 125 MG/2 ML VIAL IM ONE (18:45)
--- NOTE | 2016-09-10 18:48 | ED.PDOC ---
History of Present Illness - General Chief Complaint: General Stated Complaint: left foot pain Time Seen by Provider: 09/10/16 18:39 Source: patient Exam Limitations: no limitations - History of Present Illness Initial Comments: Patient presents with acute on chronic exacerbation of gout. He says today it is in his right ankle with extension to the right great toe. Throbbing in nature. Constant. Worse with movement, better with rest. Multiple previous episodes. Is on colchicine and naproxen already. 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 Says steroids and toradol help in these situations. Timing/Duration: 24 hours Severity: moderate Improving Factors: rest Worsening Factors: movement Associated Symptoms: denies symptoms Allergies/Adverse Reactions: Allergies NO KNOWN ALLERGY Allergy (Verified 09/10/16 18:43) Home Medications: Ambulatory Orders Colchicine [Colcrys] 0.6 mg PO BID 01/15/16 DULoxetine HCL [Cymbalta] 30 mg PO DAILY 01/15/16 Metoprolol Succinate [Toprol XL] 100 mg PO DAILY 01/15/16 amLODIPine BESYLATE [Norvasc] 10 mg PO DAILY 04/27/16 Hydrochlorothiazide 25 mg PO DAILY 07/07/16 Naproxen Sodium [Aleve Arthritis] 220 mg PO BID PRN #20 tab 07/07/16 Ketorolac Tromethamine [Toradol Tabs] 10 mg PO Q6HR #16 tab 07/10/16 Acetaminophen W/ Codeine [Tylenol W/ CODEINE #3] 2 ea PO Q4HR PRN #20 07/12/16 Review of Systems - Review of Systems Constitutional: States: no symptoms reported EENTM: States: no symptoms reported Respiratory: States: no symptoms reported Cardiology: States: no symptoms reported Gastrointestinal/Abdominal: States: no symptoms reported Genitourinary: States: no symptoms reported Musculoskeletal: States: see HPI Skin: States: no symptoms reported Neurological: States: no symptoms reported Endocrine: States: no symptoms reported Hematologic/Lymphatic: States: no symptoms reported Past Medical History (General) - Patient Medical History Hx Seizures: No Hx Stroke: No Hx Dementia: No Hx Asthma: No Hx of COPD: No Hx Cardiac Disorders: No Hx Congestive Heart Failure: No Hx Pacemaker: No Hx Hypertension: Yes Hx Thyroid Disease: No Hx Diabetes: No Hx Gastroesophageal Reflux: No Hx Renal Disease: No Hx Cancer: No Hx of HIV: No Hx Hepatitis C: No Hx MRSA: No MRSA Source:: Wound Surgical History: no surgical history - Vaccination History Hx Tetanus, Diphtheria Vaccination: No Hx Influenza Vaccination: No Hx Pneumococcal Vaccination: No Immunizations Up to Date: No - Social History Hx Tobacco Use: No Hx Chewing Tobacco Use: Yes Hx Alcohol Use: No Hx Substance Use: No Hx Substance Use Treatment: No Hx Depression: No Hx Physical Abuse: No Hx Emotional Abuse: No Hx Suspected Abuse: No - Activities of Daily Living Hospice Agency (if applicable):: None - Female History Patient is a Female of Child Bearing Age (10 -59 yrs old): No Patient : No Family Medical History - Family History Maternal Family History: No Known Name: mother Living Status: Cause of : cancer Hx Family Cancer: Yes - lung Paternal Family History: Unknown Name: father Living Status: Cause of : cancer Hx Family Cancer: Yes - lung and liver Physical Exam - Physical Exam General Appearance: Alert Respiratory: lungs clear Cardiovascular/Chest: regular rate, rhythm Peripheral Pulses: dorsalis pedis,right: 2+, dorsalis pedis,left: 2+, posterior tibialis,right: 2+, posterior tibialis,left: 2+ Gastrointestinal/Abdominal: normal bowel sounds, non tender, soft Extremity: other - Pain with dorsiflexion and plantarflexion of the right foot. No swelling. Pain with flexion/extension of the right great toe. Progress - Progress Progress: 09/10/16 18:49 Solumedrol 60 mg IM x one. Toradol 30 mg IM x one. Departure - Departure Clinical Impression: Gout attack Disposition: Discharge to Home or Self Care Condition: Good Departure Forms: ED Discharge - Pt. Copy, Patient Portal Self Enrollment Diet: resume usual diet Activity: increase activity as tolerated Referrals: Mark Mendoza MD [Primary Care Provider] - 1-2 Weeks Home Medications: Ambulatory Orders Colchicine [Colcrys] 0.6 mg PO BID 01/15/16 DULoxetine HCL [Cymbalta] 30 mg PO DAILY 01/15/16 Metoprolol Succinate [Toprol XL] 100 mg PO DAILY 01/15/16 amLODIPine BESYLATE [Norvasc] 10 mg PO DAILY 04/27/16 Hydrochlorothiazide 25 mg PO DAILY 07/07/16 Naproxen Sodium [Aleve Arthritis] 220 mg PO BID PRN #20 tab 03/13/17 Ketorolac Tromethamine [Toradol Tabs] 10 mg PO Q6HR #16 tab 07/10/16 Acetaminophen W/ Codeine [Tylenol W/ CODEINE #3] 2 ea PO Q4HR PRN #20 07/12/16 Additional Instructions: See your wind turbine performance engineer as scheduled.
[2016-09-10 19:22] VITALS: BP 168/98; TEMP 98.1
== END 2016-09-10 19:21 | disposition home or self-care (01) ==
LOC: ER 17:56
DX: M10.9 Gout, unspecified (principal); I10 Essential (primary) hypertension; Z79.899 Other long term (current) drug therapy; Z80.1 Family history of malignant neoplasm of trachea, bronchus and lung; Z80.8 Family history of malignant neoplasm of other organs or systems
CPT/HCPCS: J1885; J2930

== ENCOUNTER → 2016-09-15 | Outpatient (CLI) | payer MEDICARE | END | disposition home or self-care (01) | LOC: GMAJ 14:33 | PROVIDERS: ATTEND Family Medicine | DX: Z12.5 Encounter for screening for malignant neoplasm of prostate (principal) ==

== ENCOUNTER 2016-09-16 20:50 | Observation (INO) | payer MEDICARE ==
[2016-09-16] MEDS ORDERED: ONDANSETRON INJ 4 MG/2 ML VIAL IV ONE ×2 (21:24→22:33)
[2016-09-16] MEDS ORDERED: ASPIRIN TABLET 325 MG TAB PO ONE (21:24)
--- NOTE | 2016-09-16 21:31 | ED.PDOC ---
History of Present Illness - General Chief Complaint: Chest Pain/ND Stated Complaint: numbness/tingling l side as well as chest pressure Time Seen by Provider: 09/16/16 21:31 Source: patient, RN notes reviewed, Vital Signs reviewed Exam Limitations: no limitations - History of Present Illness Initial Comments: Terence Berry 51 y/o male with htn,gouty arthropathy stated that about 1500h today while at his office experienced sharp pain between his shoulder blades which went up to his neck and throbbing pain back of his head then numbness and tingling on his left upper extremity and chest pressure which had been steady.He went home tried to sleep but did not get relief so he decided to get check here in er. Timing/Duration: 4-6 hours Severity: moderate Improving Factors: nothing Worsening Factors: nothing Associated Symptoms: headaches Allergies/Adverse Reactions: Allergies NO KNOWN ALLERGY Allergy (Verified 09/10/16 18:43) Home Medications: Ambulatory Orders Colchicine [Colcrys] 0.6 mg PO BID 01/15/16 DULoxetine HCL [Cymbalta] 30 mg PO DAILY 01/15/16 Metoprolol Succinate [Toprol XL] 100 mg PO DAILY 01/15/16 amLODIPine BESYLATE [Norvasc] 10 mg PO DAILY 04/27/16 Hydrochlorothiazide 25 mg PO DAILY 07/07/16 Naproxen Sodium [Aleve Arthritis] 220 mg PO BID PRN #20 tab 07/07/16 Ketorolac Tromethamine [Toradol Tabs] 10 mg PO Q6HR #16 tab 07/10/16 Acetaminophen W/ Codeine [Tylenol W/ CODEINE #3] 2 ea PO Q4HR PRN #20 07/12/16 Review of Systems - Review of Systems Constitutional: States: no symptoms reported EENTM: States: no symptoms reported Respiratory: States: no symptoms reported Cardiology: States: see HPI Gastrointestinal/Abdominal: States: see HPI Musculoskeletal: States: no symptoms reported, gout - chronic Skin: States: no symptoms reported Neurological: States: headache, paresthesia Endocrine: States: no symptoms reported Past Medical History (General) - Patient Medical History Hx Seizures: No Hx Stroke: No Hx Dementia: No Hx Asthma: No Hx of COPD: No Hx Cardiac Disorders: No Hx Congestive Heart Failure: No Hx Pacemaker: No Hx Hypertension: Yes Hx Thyroid Disease: No Hx Diabetes: No Hx Gastroesophageal Reflux: No Hx Renal Disease: No Hx Cancer: No Hx of HIV: No Hx Hepatitis C: No Hx MRSA: No Hx Other PMH: Yes - gout MRSA Source:: Wound Surgical History: other - left knee - Vaccination History Hx Tetanus, Diphtheria Vaccination: No Hx Influenza Vaccination: No Hx Pneumococcal Vaccination: No - Social History Hx Tobacco Use: No - family Hx Chewing Tobacco Use: Yes Hx Alcohol Use: No Hx Substance Use: No Hx Substance Use Treatment: No Hx Depression: No Hx Physical Abuse: No Hx Emotional Abuse: No Hx Suspected Abuse: No - Activities of Daily Living Hospice Agency (if applicable):: None Grooming Ability: Independent Eating (Feeding) Ability: Independent Toileting Ability: Independent - Female History Patient is a Female of Child Bearing Age (10 -59 yrs old): No Patient : No Family Medical History - Family History Maternal Family History: No Known Name: mother Living Status: Cause of : cancer Hx Family Cancer: Yes - mom-lung;dad -lung,liver Paternal Family History: Unknown Name: father Living Status: Cause of : cancer Hx Family Cancer: Yes - lung and liver Physical Exam - Physical Exam General Appearance: Alert, No apparent distress, Other - speech fluent Eye Exam: bilateral normal Ears, Nose, Throat: hearing grossly normal, normal ENT inspection, normal pharynx Neck: non-tender, full range of motion, supple Respiratory: chest non-tender, lungs clear, normal breath sounds, no respiratory distress Cardiovascular/Chest: normal peripheral pulses, regular rate, rhythm, no murmur Peripheral Pulses: radial,right: 2+, radial,left: 2+ Gastrointestinal/Abdominal: normal bowel sounds, non tender, soft, no organomegaly, no pulsatile mass Back Exam: normal inspection, no CVA tenderness, no vertebral tenderness Extremity: normal range of motion, non-tender, normal inspection Neurologic: no motor/sensory deficits, alert, normal mood/affect, oriented x 3, other - pronator dift negative Skin Exam: normal color, warm/dry Lymphatic: no adenopathy Progress - Results/Orders Results/Orders: 09/16/16 21:24 IV Care:Saline Lock per Protoc QSHIFT Telemetry .ONCE Sodium Chloride 0.9% (Flush) [Saline Flush Syringe] 10 ml IV PRN PRN EKG Stat Pulse Ox Stat Pulse Oximetry Assessment DAILY 09/16/16 22:09 Lactated Ringers [Lr] 1,000 ml IVS ONCE 09/16/16 22:25 TROPONIN-I Stat Laboratory Results WBC 11.3 K/mm3 (4.8-10.8) H 09/16/16 21:30 RBC 4.90 M/mm3 (4.70-6.10) 09/16/16 21:30 Hgb 14.3 gm/dL (14.0-18.0) 09/16/16 21:30 Hct 42.4 % (42.0-52.0) 09/16/16 21:30 MCV 86.4 fl (80.0-94.0) 09/16/16 21:30 MCH 29.2 pg (27.0-31.0) 09/16/16 21:30 MCHC 33.8 g/dL (33.0-37.0) 09/16/16 21:30 RDW 13.7 % (11.5-14.5) 09/16/16 21:30 Plt Count 249 K/mm3 (130-400) 09/16/16 21:30 MPV 8.8 fl (7.40-10.4) 09/16/16 21:30 Absolute Neuts (auto) 7.20 K/uL (1.8-6.8) H 09/16/16 21:30 Absolute Lymphs (auto) 2.70 K/uL (1.0-3.4) 09/16/16 21:30 Absolute Monos (auto) 0.70 K/uL (0.2-0.8) 09/16/16 21:30 Absolute Eos (auto) 0.60 K/uL (0.0-0.4) H 09/16/16 21:30 Absolute Basos (auto) 0.10 K/uL (0.0-0.1) 09/16/16 21:30 Neutrophils % 63.7 % (42.0-78.0) 09/16/16 21:30 Lymphocytes % 24.1 % (20.0-50.0) 09/16/16 21:30 Monocytes % 6.1 % (2.0-9.0) 09/16/16 21:30 Eosinophils % 4.9 % (1.0-5.0) 09/16/16 21:30 Basophils % 1.2 % (0.0-2.0) 09/16/16 21:30 PT 10.3 SECONDS (9.4-12.5) 09/16/16 21:30 INR 0.910 09/16/16 21:30 PTT (SP) 29.6 SECONDS (25.1-36.5) 09/16/16 21:30 D-Dimer, Quantitative < 230 ng/mL (0-230) 09/16/16 21:30 Sodium 139 mmol/L (135-145) 09/16/16 21:30 Potassium 2.8 mmol/L (3.6-5.0) L 09/16/16 21:30 Chloride 103 mmol/L (101-111) 09/16/16 21:30 Carbon Dioxide 29 mmol/L (21-31) 09/16/16 21:30 Anion Gap 9.8 (12-18) L 09/16/16 21:30 BUN 17 mg/dL (7-18) 09/16/16 21:30 Creatinine 1.14 mg/dL (0.6-1.3) 09/16/16 21:30 BUN/Creatinine Ratio 14.9 (10-20) 09/16/16 21:30 Random Glucose 108 mg/dL (70-105) H 09/16/16 21:30 Serum Osmolality 279.6 mOsm/L (275-295) 09/16/16 21:30 Calcium 9.3 mg/dL (8.4-10.2) 09/16/16 21: Magnesium 2.0 mg/dL (1.8-2.5) 09/16/16 21:30 Total Bilirubin 0.7 mg/dL (0.2-1.0) 09/16/16 21:30 Direct Bilirubin < 0.1 mg/dL (0-0.2) 09/16/16:30 Indirect Bilirubin 0.6 mg/dL (0.2-0.8) 09/16/16 21:30 AST 23 IU/L (10-42) 09/16/16 21:30 ALT 29 IU/L (10-60) 09/16/16 21:30 Alkaline Phosphatase 78 IU/L (42-121) 09/16/16 21:30 Creatine Kinase 191 IU/L (38-174) H 05/23/17 21:30 CK-MB (CK-2) 3.9 ng/mL (0.0-4.4) 09/16/16 21:30 CK-MB (CK-2) % 2.04 % (0.0-3.5) 09/16/16 21:30 Troponin I 0.02 ng/mL (0.01-0.05) 09/16/16 21:30 B-Natriuretic Peptide 14.7 pg/ml (0-100) 09/16/16 21:30 Serum Total Protein 7.2 gm/dL (6.4-8.2) 09/16/16 21:30 Albumin 4.1 g/dl (3.2-5.5) 09/16/16 21:30 Vital Signs - 8 hr 09/16/16 09/16/16 21:15 21:28 Temperature 97.8 F Pulse Rate 82 Pulse Rate [ 82 left] Respiratory 16 Rate Blood Pressure 138/79 [right] O2 Sat by Pulse 96 95 Oximetry - EKG/XRAY/CT EKG: Sinus, no ST T wave changes Comments: heart rate 81 XRAY: chest - no acute abnormalities/radiologist CT Ordered: Yes - head w/o-no acute intracranial abnormality/radiologist Departure - Departure Clinical Impression: Chest pressure, Hypokalemia due to loss of potassium, Tingling of left upper extremity Head ache Qualifiers: Headache type: unspecified Headache chronicity pattern: acute headache Intractability: intractable Qualified Code(s): R51 - Headache Hypertension Qualifiers: Hypertension type: essential hypertension Qualified Code(s): I10 - Essential ( primary) hypertension Time of Disposition: 22:40 - D/W [facility] Hospitalist Disposition: Admit Patient Condition: Fair Departure Forms: Patient Portal Self Enrollment Referrals: Mark Mendoza MD [Primary Care Provider] - 1-2 Weeks Home Medications: Ambulatory Orders Colchicine [Colcrys] 0.6 mg PO BID 01/15/16 DULoxetine HCL [Cymbalta] 30 mg PO DAILY 01/15/16 Metoprolol Succinate [Toprol XL] 100 mg PO DAILY 01/15/16 amLODIPine BESYLATE [Norvasc] 10 mg PO DAILY 04/27/16 Hydrochlorothiazide 25 mg PO DAILY 07/07/16 Naproxen Sodium [Aleve Arthritis] 220 mg PO BID PRN #20 tab 07/07/16 Ketorolac Tromethamine [Toradol Tabs] 10 mg PO Q6HR #16 tab 07/10/16 Acetaminophen W/ Codeine [Tylenol W/ CODEINE #3] 2 ea PO Q4HR PRN #20 07/12/16
[2016-09-16] MEDS: SODIUM CHLORIDE 0.9% (FLUSH) 10 ML SYG IV PRN (21:40)
[2016-09-16] MEDS ORDERED: HYDROcodone 7.5MG/APAP 325MG 1 EA TAB PO ONE (21:43)
[2016-09-16] MEDS ORDERED: POTASSIUM CHLORIDE 20 MEQ TAB PO ONE (22:04)
[2016-09-16] MEDS ORDERED: LACTATED RINGERS 1,000 ML ONE (22:07)
--- NOTE | 2016-09-16 22:07 | CT ---
PROCEDURE: Head HISTORY: tingling Indication: Same as above Comparison: 07/18/2015 Technique: CT of the head was done without intravenous contrast was done in the orthogonal planes. This exam was performed according to our departmental dose-optimization program, which includes automated exposure control, adjustment of the mA and/or KV according to the patient's size and/or use of iterative reconstruction technique. FINDINGS: There is no intracranial hemorrhage, midline shift mass effect or acute focal infarct. If clinical concern exists regarding an acute ischemic/vascular pathology being responsible for patient's symptomatology, an MRI of the brain is more sensitive than the current study, in ruling out such a possibility. There is good earl/white matter differentiation. The ventricular system is normal. The mastoid air cells are unremarkable The paranasal sinuses are unremarkable . There is no visualization of acute fractures involving the calvarium or the skull base. IMPRESSION: There is no acute intracranial abnormality. Electronically signed by: Sukhjinder Cheng MD 09/16/2016 10:07 PM CDT Workstation: [id number]
[2016-09-16] MEDS ORDERED: LACTATED RINGERS 1,000 ML IVS ONE (22:09)
--- NOTE | 2016-09-16 22:09 | RAD ---
PROCEDURE: Chest,2 Views CLINICAL HISTORY: chest pain INDICATION: Same as above COMPARISON: June 03, 2016 TECHNIQUE: PA and and lateral chest radiographs were obtained. FINDINGS: There is minimal right lower lobe infiltrate/atelectasis There are no pneumothoraces or pleural effusions. The pulmonary vascularity is normal The cardiomediastinal silhouette is unremarkable for patient's age and sex. IMPRESSION: There is minimal right lower lobe infiltrate/atelectasis Electronically signed by: Sukhjinder Cheng MD 09/16/2016 10:09 PM CDT Workstation: [id number]
[2016-09-16] MEDS ORDERED: MORPHINE SULFATE INJ 10 MG/ML VIAL IV ONE (22:32)
[2016-09-16] MEDS ORDERED: KCL 40 MEQ/D5 1/2NS 1,000 ML IVS PRN (22:57)
[2016-09-16] MEDS ORDERED: ACETAMINOPHEN 325 MG TAB PO PRN (23:20)
[2016-09-16] MEDS ORDERED: MORPHINE SULFATE INJ 10 MG/ML VIAL IV PRN (23:20)
[2016-09-16] MEDS ORDERED: NITROGLYCERIN 0.4 MG 25 EA TAB SL PRN (23:20)
[2016-09-16] MEDS ORDERED: SODIUM CHLORIDE 0.9% (FLUSH) 10 ML SYG IV PRN (23:20)
[2016-09-16] MEDS ORDERED: KETOROLAC TROMETHAMINE INJ 30 MG/ML VIAL IV ONE (23:25)
[2016-09-16] MEDS ORDERED: KCL 40MEQ/NS 1,000 ML IVS PRN (23:27)
[2016-09-16] MEDS ORDERED: IV SET AND CAP CHANGE INJ INJ SCH (23:30)
[2016-09-17] MEDS ORDERED: HYDROmorphone HCL INJ 2 MG/ML VIAL IV ONE (00:05)
[2016-09-17] MEDS: SODIUM CHLORIDE 0.9% (FLUSH) 10 ML SYG IV PRN ×2 (00:20→03:57)
[2016-09-17] MEDS ORDERED: MORPHINE SULFATE INJ 10 MG/ML VIAL IV PRN (00:50)
[2016-09-17] MEDS ORDERED: tiZANidine 4 MG TAB PO ONE (01:36)
[2016-09-17] MEDS ORDERED: KCL 40 MEQ/D5 1/2NS 1,000 ML IVS PRN (04:21)
--- NOTE | 2016-09-17 08:13 | CT ---
EXAM DESCRIPTION: Cervical Spine CLINICAL HISTORY: 51 years,Male,JACOBO;left side paresthesia HX cervical radiculopathy COMPARISON: None TECHNIQUE: CT performed multiple axial helical tomographic images of the cervical spine from the skull base through T1-2. Then reconstructed sagittal coronal planes. This exam was performed using radiation doses that are As Low As Reasonably Achievable (ALARA). FINDINGS: No evidence of fracture of the cervical spine. Surrounding soft tissues unremarkable. Dense and arch of C1: Mild hypertrophy The lung apices and superior mediastinum unremarkable. Skull base and included paranasal sinuses unremarkable. C2-3: There is mild loss of disc height. The disc are not seen well in this CT. Facets are unremarkable for age. No neural foraminal stenosis. No spinal canal stenosis. C3-4: There is mild loss of disc height. Mild disc bulge with uncovertebral ossified especially on the left. Facets are mild hypertrophy on the right. Left neural foraminal stenosis mild to moderate due to the uncovertebral osteophyte. No spinal canal stenosis. C4-5: There is minimal loss of disc height. Mild disc bulge. Facets are unremarkable for age. No neural foraminal stenosis. No spinal canal stenosis. C5-6: There is mild loss of disc height. Mild disc bulge. Facets are unremarkable for age. No neural foraminal stenosis. No spinal canal stenosis. C6-7: There is mild loss disc height. Mild disc bulge with uncovertebral osteophytes. Facets are unremarkable for age. Bilateral mild neural foraminal stenosis due to the uncovertebral joint osteophytes. No spinal canal stenosis. IMPRESSION: Cervical spine demonstrates mostly mild disc bulges but there are some uncovertebral osteophytes at a few levels it C3-4 and C6-7 resulting in neural foraminal stenosis as described above but overall mild. Electronically signed by: Tristin Lagos MD 09/17/2016 8:13 AM CDT
[2016-09-17] MEDS: ASPIRIN TABLET 325 MG TAB PO SCH ×2 (08:44→08:45)
[2016-09-17] MEDS ORDERED: SODIUM CHLORIDE 0.9% (FLUSH) 10 ML SYG IV SCH (09:00)
[2016-09-17] MEDS ORDERED: methylPREDNISolone SODIUM SUC 125 MG/2 ML VIAL IV ONE (09:23)
[2016-09-17] MEDS ORDERED: amLODIPine BESYLATE 5 MG TAB PO SCH (09:30)
[2016-09-17] MEDS ORDERED: COLCHICINE 0.6 MG TAB PO SCH (09:30)
[2016-09-17] MEDS ORDERED: METOPROLOL SUCCINATE XL 100 MG TAB PO SCH (09:30)
[2016-09-17 09:58] VITALS: O2SAT 97
[2016-09-17 10:07] VITALS: BP 144/86; TEMP 97.8
--- NOTE | 2016-09-18 08:52 | SSS ---
SUPERVISING PHYSICIAN: Royce Alonso MD DATE OF ADMISSION: 09/16/16 DATE OF DISCHARGE: 09/17/16 CHIEF COMPLAINT: Left shoulder pain, chest pressure, left sided paresthesia with headache. HISTORY OF PRESENT ILLNESS: Mr. Berry is a 51-year-old, male patient who presented to the Emergency Department on 09/16/16, late in the evening complaining of numbness and tingling to his left side with some chest pressure. He does have a significant history of hypertension, gouty arthropathy and noted that his symptoms started about 3 o'clock the date of admission while he was at work, at which time he experienced some sharp pains between his shoulders blades which went up to his neck and to the back of his head, resulting in numbness and tingling to his left upper extremity as well as lower extremity with some chest pressure and headache. He then went home and tried to sleep, but did not any relief, so at that point, he decided to go to the Emergency Department for evaluation. In the Emergency Department, laboratory studies showed he had a mild leukocytosis of 11.3 with no left shift. Coagulation studies were normal. Chemistries showed a low potassium of 2.8. Otherwise, within normal limits. EKG showed normal sinus rhythm. Initial troponin, CPK, CK-MB were all within normal limits with troponin 0.02. He was given morphine in the Emergency Department and this resulted in some relief of his pain. He was also given fluids for replacement of potassium as well as repeat of his troponin after 3 hours and was 0.02. Chest x-ray was completed prior to placing the patient in observation and per radiologic interpretation, there was note of minimal right lobe atelectasis. He then had a CT of the head without contrast and per radiologic interpretation, there were no acute intracranial abnormalities noted. Dr. Melo, Emergency Room physician, felt that the patient needed replacement of his potassium and further investigation and close monitoring given that he was having some chest pressure. Therefore, the patient is placed in observation to help further rule out acute myocardial infarction and for further treatment and evaluation. He was admitted in stable condition. At time of admission to the Medical/Surgical Floor, he was not having any chest pressure as mentioned in the Emergency Department. PAST MEDICAL HISTORY: 1. Chronic gouty arthropathy with tophus. 2. Depression. 3. Hypertension. 4. Hyperlipidemia. PAST SURGICAL HISTORY: 1. Arthroscopy of knees and elbows. 2. Left inguinal hernia repair. 3. Colonoscopy was normal in 2007. HOME MEDICATIONS: 1. Colchicine 0.6 mg twice daily. 2. Norvasc 10 mg daily. 3. Toprol XL 200 mg daily. 4. Cymbalta 30 mg daily. 5. Hydrochlorothiazide 12.5 mg daily. ALLERGIES: NO KNOWN DRUG ALLERGIES. FAMILY HISTORY: Father from colon cancer. Mother from unspecified type of cancer. SOCIAL HISTORY: The patient works for [employer] in [place]. He is . He denies smoking, but uses smokeless tobacco. He denies any significant alcohol consumption. REVIEW OF SYSTEMS: CONSTITUTIONAL: Denies any fevers, chills, or unintentional weight loss. HEENT: Denies headaches, visual change or neck pain. RESPIRATORY: CARDIOVASCULAR: Denies chest pain or palpitations. GASTROINTESTINAL: Denies nausea or vomiting. GENITOURINARY: Denies dysuria, hematuria, polyuria. Denies dysuria, increased frequency or other urinary symptoms. NEUROLOGIC: PHYSICAL EXAMINATION: VITAL SIGNS: Temperature 98.2. Pulse 75. Blood pressure 156/92. Respirations 18. O2 saturation 98% on room air. GENERAL: The patient appears to be well-nourished and well-hydrated. He appears to be very comfortable and is in no acute distress. He is alert and oriented times 3. HEENT: Tympanic membranes clear bilaterally. Oropharynx is pink, moist without any lesions. NECK: No jugular venous distention noted. Supple, nontender. CHEST: Lungs clear to auscultation bilaterally without any rhonchi, wheezes, or rales. CARDIOVASCULAR: Regular rate and rhythm without any appreciable murmurs, gallops, or rubs. ABDOMEN: Soft, nontender. Positive bowel sounds. EXTREMITIES: There is no cyanosis, clubbing or edema. NEUROLOGIC: The patient is alert and oriented times three. Cranial nerves II- XII are grossly intact. Facial features are symmetrical. Extraocular movements are within normal limits. No notable neuromotor deficits. He did report left sided paresthesias from the top of his head down to his toes as well as a headache, but he was alert and oriented times 3. LABORATORY: Initial white count on admission was 11.3, at time of discharge it had normalized to 10.9. Hemoglobin 13.3, hematocrit 39.8, platelet count within normal limits at 229,000, differential with no left shift on admission or discharge. PT, PT-T and D-dimer were all normal. Initial potassium on admission was 2.8, after treatment and prior to discharge was 3.4. Otherwise, electrolytes were within normal limits. BUN at discharge was 14, creatinine 0.82, calcium 8.6. Liver functions were all within normal limits. He initially had elevated CPK of 191, but prior to discharge was 140, normalized. He had three sets of troponins which were all within normal limits with the last one being less than 0.02. Lipid panel showed triglycerides 76, cholesterol 186, LDL cholesterol 139, HDL 38. RADIOLOGY: In the Emergency Department, he had a chest x-ray and per radiologic interpretation was note of minimal right lower lobe atelectasis. He also had a CT of the head without contrast and per radiologic interpretation there were no acute intracranial abnormalities noted. After admission to the Medical/Surgical Floor, CT of the cervical spine was completed and per radiologic interpretation there was note of cervical spine demonstrating mostly mild disc bulges, but there are some uncovertebral osteophytes at a few levels of C3-C4 and C6-C7 resulting in neuroforaminal stenosis. Please refer to that report for full details. HOSPITAL COURSE: Mr. Berry is a 51-year-old, male who was admitted from the Emergency Department as noted in history of present illness. Once he was admitted through the Emergency Department, he was no longer experiencing any chest pains, but continued to have headache and paresthesias with some left shoulder pain. He was given pain medicine as well as muscle relaxants that did result in resolution of his headache, but continued to have some paresthesias on the left side through the entire hospitalization. He was placed on continuous cardiac telemetry that showed no abnormal rhythms. His EKG at discharge showed a normal sinus rhythm. There was no noted ST or T wave changes throughout the entire hospitalization. He was no longer reporting any chest pressure even prior to admission to the Medical/Surgical Floor and was felt clinically well enough to be discharged home to have close clinical followup with neurology with Dr. Galindo and his primary care provider, Dr. Mendoza. He was given potassium replacement, both orally and intravenously, that did result in improvement in potassium prior to discharge and was stable. ASSESSMENT: 1. Moderate electrolyte imbalance with hypokalemia, likely secondary to medications to include hydrochlorothiazide. This appears to be chronic. 2. Reported chest pressure without any acute findings on laboratory apparatus glass blower and cardiac laboratory studies to indicate any acute myocardial infarction with the patient having normal sinus rhythm at discharge. 3. Headache and paresthesias, likely secondary to a cervical radiculopathy as noted, consistent with findings on CT of the cervical spine with osteophytes and disc bulges on C3-C4 and C6-C7 with some neuroforaminal stenosis without any mention of focal deficits. 4. Longstanding history of gouty arthropathy with tophus. 5. Depression. 6. Hypertension on antihypertensives. PLAN: The patient is clinically stable. His headache was resolved after giving the patient pain medicines to include Dilaudid and Zanaflex. The patient remained stable through the night and is felt clinically well enough to be discharged to have close clinical followup with his primary care provider, Dr. Mendoza, as well as close clinical followup and further evaluation by neurology with Dr. Galindo who has actually seen the patient in the past. The patient was discharged to continue all home medications except for noting to hold his hydrochlorothiazide secondary to the underlying hypokalemia. He was encouraged to increase fluid intake to prevent dehydration. Diet was to be regular diet as tolerated. Activity as tolerated. The patient was discharged in stable condition. No new medications were prescribed. #[id number] [facility]
== END 2016-09-17 10:10 | disposition home or self-care (01) ==
LOC: ER 20:50 → MS 22:52
PROVIDERS: ADMIT Nurse Practitioner Family; ATTEND Nurse Practitioner Family
DX: E87.6 Hypokalemia (principal); R07.89 Other chest pain; R51 Headache; R20.2 Paresthesia of skin; D72.829 Elevated white blood cell count, unspecified; I10 Essential (primary) hypertension; M1A.9XX1 Chronic gout, unspecified, with tophus (tophi); M25.512 Pain in left shoulder; E78.5 Hyperlipidemia, unspecified; F32.9 Major depressive disorder, single episode, unspecified; M50.13 Cervical disc disorder with radiculopathy, cervicothoracic region; M48.02 Spinal stenosis, cervical region; F17.220 Nicotine dependence, chewing tobacco, uncomplicated; Z79.899 Other long term (current) drug therapy; Z80.0 Family history of malignant neoplasm of digestive organs
CPT/HCPCS: 36415 ×5; 70450; 71020; 72125; 80048; 80053; 80061; 80076; 82550 ×2; 82553 ×2; 83880; 84484 ×3; 85025 ×2; 85379; 85610; 85730; 93005 ×2; 94760 ×2; 96361; 96374; 96375 ×3; 96376 ×2; 99284; G0378; J1170; J1885; J2270 ×2; J2405 ×2; J2930; J7120

== ENCOUNTER 2016-11-11 17:56 | Emergency (ER) | payer MEDICARE ==
[2016-11-11 18:10] VITALS: TEMP 97.4
[2016-11-11] MEDS ORDERED: methylPREDNISolone ACETATE 80 MG/ML VIAL IM ONE (18:38)
--- NOTE | 2016-11-11 18:42 | ED.PDOC ---
History of Present Illness - General Chief Complaint: General Stated Complaint: gout in left hand Time Seen by Provider: 11/11/16 18:27 Source: patient Exam Limitations: no limitations - History of Present Illness Initial Comments: PT STATES 22 YR H/O GOUT. IS ON COLCHICINE AND ALLOPURINOL. INDOMETHICINE DOESN'T HELP. STEROIDS HELP. GET GOUT IN ANY JOINT - KNEES, TOES, HANDS. TRIED CHERRIES. PT STATES HIS BP INCREASES WHEN GETS A GOUT FLARE. Severity: severe Improving Factors: nothing Worsening Factors: movement Associated Symptoms: denies symptoms Allergies/Adverse Reactions: Allergies NO KNOWN ALLERGY Allergy (Verified 09/10/16 18:43) Home Medications: Ambulatory Orders Colchicine [Colcrys] 0.6 mg PO BID 01/15/16 amLODIPine BESYLATE [Norvasc] 10 mg PO DAILY 04/27/16 Allopurinol [Zyloprim] 200 mg PO DAILY 11/11/16 Hydrochlorothiazide 25 mg PO DAILY 11/11/16 methylPREDNISolone TAB [Medrol Tab] 4 mg PO DAILY #1 tab 11/11/16 Review of Systems - Review of Systems Constitutional: States: no symptoms reported EENTM: States: no symptoms reported Respiratory: States: no symptoms reported Cardiology: States: no symptoms reported Gastrointestinal/Abdominal: States: no symptoms reported Genitourinary: States: no symptoms reported Musculoskeletal: States: gout, joint pain, joint swelling Skin: States: change in color Neurological: States: no symptoms reported Endocrine: States: no symptoms reported Hematologic/Lymphatic: States: no symptoms reported All other Systems: Reviewed and Negative Past Medical History (General) - Patient Medical History Hx Seizures: No Hx Stroke: No Hx Dementia: No Hx Asthma: No Hx of COPD: No Hx Cardiac Disorders: No Hx Congestive Heart Failure: No Hx Pacemaker: No Hx Hypertension: Yes Hx Thyroid Disease: No Hx Diabetes: No Hx Gastroesophageal Reflux: No Hx Renal Disease: No Hx Cancer: No Hx of HIV: No Hx Hepatitis C: No Hx MRSA: No MRSA Source:: Wound Surgical History: no surgical history - Vaccination History Hx Tetanus, Diphtheria Vaccination: No Hx Influenza Vaccination: No Hx Pneumococcal Vaccination: No - Social History Hx Tobacco Use: No Hx Chewing Tobacco Use: Yes Hx Alcohol Use: No Hx Substance Use: No Hx Substance Use Treatment: No Hx Depression: No Hx Physical Abuse: No Hx Emotional Abuse: No Hx Suspected Abuse: No - Female History Patient : No Family Medical History - Family History Maternal Family History: No Known Name: mother Living Status: Cause of : cancer Hx Family Cancer: Yes - mom-lung;dad -lung,liver Paternal Family History: Unknown Name: father Living Status: Cause of : cancer Hx Family Cancer: Yes - lung and liver Physical Exam - Physical Exam General Appearance: Alert, Well Nourished Ears, Nose, Throat: hearing grossly normal Neck: normal inspection Respiratory: chest non-tender, lungs clear Cardiovascular/Chest: normal peripheral pulses, regular rate, rhythm Peripheral Pulses: radial,right: 2+, radial,left: 2+ Gastrointestinal/Abdominal: normal bowel sounds, non tender Extremity: other - SEE SKIN EXAM Neurologic: no motor/sensory deficits, alert Skin Exam: other - RUBOR, TUMOR, DOLOR, CALOR OF L MIDDLE FINGER PIP JOINT, C/W GOUT. Lymphatic: no adenopathy Progress - Progress Progress: 11/11/16 18:45 GOUT OF L MIDDLE FINGER PIP JOINT - DEPOMEDROL IM. RX MEDROL DOSE PACK. ACUTE ON CHRONIC HTN - BP NOW DOWN TO 162 FORM 190, THUS JUST GIVING CLONIDINE 0.1 MG . Departure - Departure Clinical Impression: Gout attack, Hypertension Disposition: Discharge to Home or Self Care Condition: Good Departure Forms: ED Discharge - Pt. Copy, Patient Portal Self Enrollment Instructions: Higher Vitamin C Intake Associated With Lower Risk of Gout Diet: resume usual diet Activity: increase activity as tolerated Referrals: Mark Mendoza MD [Primary Care Provider] - 1-2 Weeks Prescriptions: methylPREDNISolone TAB [Medrol Tab] 4 mg PO DAILY #1 tab Home Medications: Ambulatory Orders Colchicine [Colcrys] 0.6 mg PO BID 01/15/16 amLODIPine BESYLATE [Norvasc] 10 mg PO DAILY 04/27/16 Allopurinol [Zyloprim] 200 mg PO DAILY 11/11/16 Hydrochlorothiazide 25 mg PO DAILY 11/11/16 methylPREDNISolone TAB [Medrol Tab] 4 mg PO DAILY #1 tab 11/11/16
[2016-11-11] MEDS: cloNIDine HCL 0.1 MG TAB PO ONE ×2 (18:45→18:50)
[2016-11-11] MEDS ORDERED: cloNIDine HCL 0.1 MG TAB PO ONE (18:50)
[2016-11-11 18:54] VITALS: O2SAT 97
[2016-11-11 19:07] VITALS: BP 175/99
== END 2016-11-11 19:07 | disposition home or self-care (01) ==
LOC: ER 17:56
DX: M10.9 Gout, unspecified (principal); I10 Essential (primary) hypertension; Z79.899 Other long term (current) drug therapy; Z87.891 Personal history of nicotine dependence

== ENCOUNTER 2016-11-21 16:12 | Emergency (ER) | payer MEDICARE ==
[2016-11-21 17:15] VITALS: O2SAT 97
--- NOTE | 2016-11-21 17:21 | ED.PDOC ---
History of Present Illness - General Chief Complaint: Skin/Abrasion/Tear Stated Complaint: L great toe pain s/p injury Time Seen by Provider: 11/21/16 17:13 Source: patient, RN notes reviewed, Vital Signs reviewed Exam Limitations: no limitations - History of Present Illness Initial Comments: Patient comes in with c/o of L great toe pain after getting it smashed while helping a friend change a tire 2 days ago. He tried cutting his toenail off but it was too painful. Pain is worse with touching and movement. Improved with rest. Timing/Duration: constant - for 2 days Severity: moderate Improving Factors: immobilization Worsening Factors: movement Associated Symptoms: denies symptoms Allergies/Adverse Reactions: Allergies NO KNOWN ALLERGY Allergy (Verified 09/10/16 18:43) Home Medications: Ambulatory Orders Colchicine [Colcrys] 0.6 mg PO BID 01/15/16 amLODIPine BESYLATE [Norvasc] 10 mg PO DAILY 04/27/16 Allopurinol [Zyloprim] 200 mg PO DAILY 11/11/16 Hydrochlorothiazide 25 mg PO DAILY 11/11/16 methylPREDNISolone TAB [Medrol Tab] 4 mg PO DAILY #1 tab 11/11/16 Sulfa/Trimeth 800/160 (Ds) Tab [Bactrim DS Tab] 1 ea PO BID #14 tab 11/21/16 Review of Systems - Review of Systems Constitutional: States: no symptoms reported Respiratory: States: no symptoms reported Cardiology: States: no symptoms reported Musculoskeletal: States: see HPI Skin: States: change in color - redness around base of toenail Neurological: States: no symptoms reported All other Systems: No Change from Baseline Past Medical History (General) - Patient Medical History Hx Seizures: No Hx Stroke: No Hx Dementia: No Hx Asthma: No Hx of COPD: No Hx Cardiac Disorders: No Hx Congestive Heart Failure: No Hx Pacemaker: No Hx Hypertension: Yes Hx Thyroid Disease: No Hx Diabetes: No Hx Gastroesophageal Reflux: No Hx Renal Disease: No Hx Cancer: No Hx of HIV: No Hx Hepatitis C: No Hx MRSA: No MRSA Source:: Wound Surgical History: no surgical history - Vaccination History Hx Tetanus, Diphtheria Vaccination: No Hx Influenza Vaccination: No Hx Pneumococcal Vaccination: No - Social History Hx Tobacco Use: No Hx Chewing Tobacco Use: Yes Hx Alcohol Use: No Hx Substance Use: No Hx Substance Use Treatment: No Hx Depression: No Hx Physical Abuse: No Hx Emotional Abuse: No Hx Suspected Abuse: No - Female History Patient : No Family Medical History - Family History Maternal Family History: No Known Name: mother Living Status: Cause of : cancer Hx Family Cancer: Yes - mom-lung;dad -lung,liver Paternal Family History: Unknown Name: father Living Status: Cause of : cancer Hx Family Cancer: Yes - lung and liver Physical Exam - Physical Exam General Appearance: Alert, Comfortable, No apparent distress, Well Developed, Well Groomed, Well Hydrated, Well Nourished Respiratory: no respiratory distress Cardiovascular/Chest: other - Brisk capillary refill L great toe Peripheral Pulses: dorsalis pedis,left: 2+ Extremity: normal capillary refill, inflammation, swelling, other - L great toe : erythema, tenderness & swelling around base of toenail. Neurologic: no motor/sensory deficits, alert, normal mood/affect, oriented x 3 Skin Exam: normal color, warm/dry Comments: Vital Signs 11/21/16 16:25 Temperature 98.9 F Pulse Rate [ 84 left brachial] Respiratory 16 Rate Blood Pressure 170/101 [left brachial] O2 Sat by Pulse 97 Oximetry Progress - EKG/XRAY/CT XRAY: L great toe: no fracture per Radiologist Departure - Departure Clinical Impression: Cellulitis of toe, left Contusion of toe, left Qualifiers: Encounter type: initial encounter Toe: great toe Damage to nail status: with damage Qualified Code(s): S90.212A - Contusion of left great toe with damage to nail, initial encounter Time of Disposition: 17:38 Disposition: Discharge to Home or Self Care Condition: Good Departure Forms: ED Discharge - Pt. Copy, Patient Portal Self Enrollment Instructions: DI for Cellulitis -- Adult, DI for Contusion Diet: resume usual diet Activity: increase activity as tolerated Referrals: Mark Mendoza MD [Primary Care Provider] - 1-2 Weeks Prescriptions: Sulfa/Trimeth 800/160 (Ds) Tab [Bactrim DS Tab] 1 ea PO BID #14 tab Home Medications: Ambulatory Orders Colchicine [Colcrys] 0.6 mg PO BID 01/15/16 amLODIPine BESYLATE [Norvasc] 10 mg PO DAILY 04/27/16 Allopurinol [Zyloprim] 200 mg PO DAILY 11/11/16 Hydrochlorothiazide 25 mg PO DAILY 11/11/16 methylPREDNISolone TAB [Medrol Tab] 4 mg PO DAILY #1 tab 11/11/16 Sulfa/Trimeth 800/160 (Ds) Tab [Bactrim DS Tab] 1 ea PO BID #14 tab 11/21/16
--- NOTE | 2016-11-21 17:34 | RAD ---
EXAM DESCRIPTION: Toes,Left CLINICAL HISTORY: 51 years Male great toe pain s/p injury COMPARISON: None. TECHNIQUE: LEFT toe, three views FINDINGS: No acute fractures or dislocations are identified. No osseous destructive lesions. Degenerative changes at the first metatarsophalangeal joint No radiopaque foreign object noted. IMPRESSION: No acute fracture is identified. Electronically signed by: Kim Montes 11/21/2016 5:33 PM CDT
[2016-11-21 18:15] VITALS: BP 165/109
== END 2016-11-21 18:00 | disposition home or self-care (01) ==
LOC: ER 16:12
DX: S90.212A Contusion of left great toe with damage to nail, initial encounter (principal); L03.032 Cellulitis of left toe; I10 Essential (primary) hypertension; Z87.891 Personal history of nicotine dependence; Z79.899 Other long term (current) drug therapy; W23.0XXA Caught, crushed, jammed, or pinched between moving objects, initial encounter

== ENCOUNTER 2017-04-14 20:41 | Emergency (ER) | payer MEDICARE ==
[2017-04-14 21:01] VITALS: TEMP 98; O2SAT 97
[2017-04-14] MEDS ORDERED: predniSONE 20 MG TAB PO ONE (21:05)
[2017-04-14] MEDS ORDERED: HYDROcodone 7.5MG/APAP 325MG 1 EA TAB PO ONE (21:05)
[2017-04-14] MEDS ORDERED: KETOROLAC TROMETHAMINE INJ 30 MG/ML VIAL IM ONE (21:05)
--- NOTE | 2017-04-14 21:21 | RAD ---
EXAM DESCRIPTION: Chest,2 Views CLINICAL HISTORY: rll pain with cough COMPARISON: None FINDINGS: Cardiac silhouette is within normal limits. There is no focal parenchymal or pleural disease. There is no acute osseous process visualized. IMPRESSION: No evidence of acute cardiopulmonary disease. Electronically signed by: Jah Du MD 04/14/2017 9:19 PM DOCTOR OF PODIATRIC MEDICINE
[2017-04-14] MEDS ORDERED: AZITHROMYCIN 250 MG TAB PO ONE (21:41)
[2017-04-14] MEDS ORDERED: cloNIDine HCL 0.1 MG TAB PO ONE (21:41)
[2017-04-14 22:35] VITALS: BP 158/102
--- NOTE | 2017-04-14 22:46 | ED.PDOC ---
History of Present Illness - General Chief Complaint: Headache Stated Complaint: rt rib pain after coughing, htn Time Seen by Provider: 04/14/17 20:43 Source: patient Exam Limitations: no limitations - History of Present Illness Initial Comments: the patient is a 51-year-old male presenting to the emergency room secondary to a cough that's been persistent for the last week to 2 weeks. He has been coughing very hard and is actually strengthen musculature to his right lower rib cage and abdomen. There is no bruising. There is no crepitus. He is not really coughing anything up. He is in significant discomfort however. No asthma. No shortness of breath. He does have seasonal allergies. Timing/Duration: 1 week Severity: severe Improving Factors: nothing Worsening Factors: movement Associated Symptoms: cough Allergies/Adverse Reactions: Allergies NO KNOWN ALLERGY Allergy (Verified 09/10/16 18:43) Home Medications: Ambulatory Orders Colchicine [Colcrys] 0.6 mg PO BID 01/15/16 amLODIPine BESYLATE [Norvasc] 10 mg PO DAILY 04/27/16 Allopurinol [Zyloprim] 200 mg PO DAILY 11/11/16 Hydrochlorothiazide 25 mg PO DAILY 11/11/16 methylPREDNISolone TAB [Medrol Tab] 4 mg PO DAILY #1 tab 11/11/16 Sulfa/Trimeth 800/160 (Ds) Tab [Bactrim DS Tab] 1 ea PO BID #14 tab 11/21/16 Azithromycin 500 mg PO DAILY #5 tab 04/14/17 Cyclobenzaprine HCl [Flexeril] 5 mg PO TID PRN #30 tab 04/14/17 predniSONE [Prednisone] 20 mg PO DAILY #5 tab 04/14/17 Review of Systems - Review of Systems Constitutional: States: malaise EENTM: States: nose congestion Respiratory: States: cough Cardiology: States: see HPI, chest pain Gastrointestinal/Abdominal: States: see HPI, abdominal pain Genitourinary: States: no symptoms reported Musculoskeletal: States: see HPI Skin: States: no symptoms reported Neurological: States: no symptoms reported Endocrine: States: no symptoms reported All other Systems: No Change from Baseline Past Medical History (General) - Patient Medical History Hx Seizures: No Hx Stroke: No Hx Dementia: No Hx Asthma: No Hx of COPD: No Hx Cardiac Disorders: No Hx Congestive Heart Failure: No Hx Pacemaker: No Hx Hypertension: Yes Hx Thyroid Disease: No Hx Diabetes: No Hx Gastroesophageal Reflux: No Hx Renal Disease: No Hx Cancer: No Hx of HIV: No Hx Hepatitis C: No Hx MRSA: No MRSA Source:: Wound - Vaccination History Hx Tetanus, Diphtheria Vaccination: No Hx Influenza Vaccination: No Hx Pneumococcal Vaccination: No - Social History Hx Tobacco Use: No Hx Chewing Tobacco Use: Yes Hx Alcohol Use: No Hx Substance Use: No Hx Substance Use Treatment: No Hx Depression: No Hx Physical Abuse: No Hx Emotional Abuse: No Hx Suspected Abuse: No - Female History Patient : No Family Medical History - Family History Maternal Family History: No Known Name: mother Living Status: Cause of : cancer Hx Family Cancer: Yes - mom-lung;dad -lung,liver Paternal Family History: Unknown Name: father Living Status: Cause of : cancer Hx Family Cancer: Yes - lung and liver Physical Exam - Physical Exam General Appearance: Alert, No apparent distress Eye Exam: bilateral normal Ears, Nose, Throat: hearing grossly normal, nasal congestion Neck: full range of motion, supple Respiratory: lungs clear, normal breath sounds, no respiratory distress, no accessory muscle use, other - right lateral lower rib cage and right upper quadrant musculature are tender to palpation Cardiovascular/Chest: normal peripheral pulses, regular rate, rhythm, no edema Peripheral Pulses: radial,right: 2+, radial,left: 2+ Gastrointestinal/Abdominal: non tender, soft Rectal Exam: deferred Back Exam: normal inspection, no CVA tenderness Extremity: normal range of motion, non-tender, normal inspection, no pedal edema , normal capillary refill Neurologic: 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 The patient will be placed on 5 days of oral azithromycin and prednisone to cover both possibilities. Additionally he'll be placed on some Flexeril to help reduce the muscle spasm and discomfort. He can additionally take 2 Aleve twice daily for the next week with food. He needs to keep himself well-hydrated. Sleeping with a humidifier may help reduce some of the coughing in the morning. The patient did additionally have some significant hypertension. This is likely reactive. Blood pressures did come down with treatment. He should follow these at home. ER warnings were given for a significant worsening. No evidence of any overt pneumonia. He should follow-up with his primary care doctor later next week. 04/14/17 22:49 - Results/Orders Results/Orders: hest x-ray shows no evidence of any acute pathology. Departure - Departure Clinical Impression: Bronchitis, Benign reactive hypertension Chest wall muscle strain Qualifiers: Encounter type: initial encounter Qualified Code(s): S29.011A - Strain of muscle and tendon of front wall of thorax, initial encounter Disposition: Discharge to Home or Self Care Condition: Fair Departure Forms: ED Discharge - Pt. Copy, Patient Portal Self Enrollment Instructions: DI for Acute Bronchitis, Muscle Strain, High Blood Pressure Diet: regular diet Activity: increase activity as tolerated Referrals: Mark Mendoza MD [Primary Care Provider] - 1-2 Weeks Prescriptions: Azithromycin 500 mg PO DAILY #5 tab Cyclobenzaprine HCl [Flexeril] 5 mg PO TID PRN #30 tab PRN Reason: Muscle Spasms predniSONE [Prednisone] 20 mg PO DAILY #5 tab Home Medications: Ambulatory Orders Colchicine [Colcrys] 0.6 mg PO BID 01/15/16 amLODIPine BESYLATE [Norvasc] 10 mg PO DAILY 04/27/16 Allopurinol [Zyloprim] 200 mg PO DAILY 11/11/16 Hydrochlorothiazide 25 mg PO DAILY 11/11/16 methylPREDNISolone TAB [Medrol Tab] 4 mg PO DAILY #1 tab 11/11/16 Sulfa/Trimeth 800/160 (Ds) Tab [Bactrim DS Tab] 1 ea PO BID #14 tab 11/21/16 Azithromycin 500 mg PO DAILY #5 tab 04/14/17 Cyclobenzaprine HCl [Flexeril] 5 mg PO TID PRN #30 tab 04/14/17 predniSONE [Prednisone] 20 mg PO DAILY #5 tab 04/14/17 Additional Instructions: the patient's 51-year-old male presenting to the emergency room with a persistent cough consistent with a bronchitis or tracheitis that is possibly of infectious origin versus allergic origin. The patient will be placed on 5 days of oral azithromycin and prednisone to cover both possibilities. Additionally he'll be placed on some Flexeril to help reduce the muscle spasm and discomfort. He can additionally take 2 Aleve twice daily for the next week with food. He needs to keep himself well-hydrated. Sleeping with a humidifier may help reduce some of the coughing in the morning. ER warnings were given for a significant worsening. No evidence of any overt pneumonia. He should follow-up with his primary care doctor later next week.
== END 2017-04-14 23:00 | disposition home or self-care (01) ==
LOC: ER 20:41
DX: J40 Bronchitis, not specified as acute or chronic (principal); S29.011A Strain of muscle and tendon of front wall of thorax, initial encounter; I10 Essential (primary) hypertension; Z87.891 Personal history of nicotine dependence; X58.XXXA Exposure to other specified factors, initial encounter
CPT/HCPCS: 71020; J1885; J7512; Q0144

== ENCOUNTER 2017-05-25 20:31 | Emergency (ER) | payer MEDICARE ==
[2017-05-25 21:45] VITALS: TEMP 98; O2SAT 97
--- NOTE | 2017-05-25 21:48 | ED.PDOC ---
History of Present Illness - General Chief Complaint: Back Pain or Injury Stated Complaint: left shoulder pain Time Seen by Provider: 05/25/17 21:41 Source: patient Exam Limitations: no limitations Additional Information: C/O L SHOULDER AND ARM PAIN FOR TWO DAYS. NO HX OF TRAUMA. DESCRIBED A TIGHTNESS. HAS INCREASED TODAY - History of Present Illness Severity: moderate Improving Factors: nothing Worsening Factors: nothing Associated Symptoms: other - ELEVATED BP Allergies/Adverse Reactions: Allergies NO KNOWN ALLERGY Allergy (Verified 09/10/16 18:43) Home Medications: Ambulatory Orders Colchicine [Colcrys] 0.6 mg PO BID 01/15/16 amLODIPine BESYLATE [Norvasc] 10 mg PO DAILY 04/27/16 Lesinurad-Allopurinol [Duzallo 200-200 mg] 1 tab PO 04/14/17 Metoprolol Succinate [Metoprolol Succinate ER] 200 mg PO 04/14/17 Indomethacin 50 mg PO TID PRN #14 cap 05/25/17 Review of Systems - Review of Systems Constitutional: Denies: chills, diaphoresis, fever EENTM: States: no symptoms reported Respiratory: Denies: cough, short of breath, wheezing Cardiology: Denies: chest pain, palpitations, syncope Gastrointestinal/Abdominal: Denies: abdominal pain, nausea, vomiting Genitourinary: States: no symptoms reported Musculoskeletal: States: no symptoms reported Skin: States: no symptoms reported Neurological: States: no symptoms reported Endocrine: States: no symptoms reported Hematologic/Lymphatic: States: no symptoms reported Past Medical History (General) - Patient Medical History Hx Seizures: No Hx Stroke: No Hx Dementia: No Hx Asthma: No Hx of COPD: No Hx Cardiac Disorders: No Hx Congestive Heart Failure: No Hx Pacemaker: No Hx Hypertension: Yes Hx Thyroid Disease: No Hx Diabetes: No Hx Gastroesophageal Reflux: No Hx Renal Disease: No Hx Cancer: No Hx of HIV: No Hx Hepatitis C: No Hx MRSA: No MRSA Source:: Wound - Vaccination History Hx Tetanus, Diphtheria Vaccination: No Hx Influenza Vaccination: No Hx Pneumococcal Vaccination: No - Social History Hx Tobacco Use: No Hx Chewing Tobacco Use: Yes Hx Alcohol Use: No Hx Substance Use: No Hx Substance Use Treatment: No Hx Depression: No Hx Physical Abuse: No Hx Emotional Abuse: No Hx Suspected Abuse: No - Female History Patient : No Family Medical History - Family History Maternal Family History: No Known Name: mother Living Status: Cause of : cancer Hx Family Cancer: Yes - mom-lung;dad -lung,liver Paternal Family History: Unknown Name: father Living Status: Cause of : cancer Hx Family Cancer: Yes - lung and liver Physical Exam - Physical Exam General Appearance: No apparent distress, Well Developed, Well Nourished Eye Exam: bilateral normal Ears, Nose, Throat: hearing grossly normal, normal ENT inspection Neck: non-tender, full range of motion, supple, normal inspection Respiratory: lungs clear, normal breath sounds Cardiovascular/Chest: regular rate, rhythm, no murmur Gastrointestinal/Abdominal: non tender, soft, no organomegaly Back Exam: normal inspection, no CVA tenderness Extremity: normal range of motion, normal inspection, no pedal edema, no calf tenderness Neurologic: alert, normal mood/affect Skin Exam: normal color, warm/dry Lymphatic: no adenopathy Progress - Progress Progress: 05/25/17 22:57 NO RELIEF FROM NTG. BP BETTER BUT STILL ELEVATED. WILL RX TORADOL AND CLONIDINE - EKG/XRAY/CT EKG: Sinus - 67, NL AXIS, NL INTERVALS, , nonspecific ST T wave Chg - NAIP, , Changed from - 09/16/16, IMPROVEMENT OF THE NONSPECIFIC T WAVE CHANGES. Departure - Departure Clinical Impression: Elevated blood pressure reading Arm pain Qualifiers: Laterality: left Qualified Code(s): M79.602 - Pain in left arm Hypertension Qualifiers: Hypertension type: essential hypertension Qualified Code(s): I10 - Essential ( primary) hypertension ICD-10 Supporting Text: DDX, BURSITIS, RADICULOPATHY, PERIPHERAL NEUROPATHY Time of Disposition: 23:03 Disposition: Discharge to Home or Self Care Condition: Good Departure Forms: ED Discharge - Pt. Copy, Patient Portal Self Enrollment Instructions: DI for Low Back Pain, DI for Arm Pain Referrals: Mark Mendoza MD [Primary Care Provider] - 1-2 Weeks Prescriptions: Indomethacin 50 mg PO TID PRN #14 cap PRN Reason: Pain Home Medications: Ambulatory Orders Colchicine [Colcrys] 0.6 mg PO BID 01/15/16 amLODIPine BESYLATE [Norvasc] 10 mg PO DAILY 04/27/16 Lesinurad-Allopurinol [Duzallo 200-200 mg] 1 tab PO 04/14/17 Metoprolol Succinate [Metoprolol Succinate ER] 200 mg PO 04/14/17 Indomethacin 50 mg PO TID PRN #14 cap 05/25/17
[2017-05-25] MEDS ORDERED: ASPIRIN (CHEWABLE) 81 MG TAB PO ONE (21:54)
[2017-05-25] MEDS ORDERED: NITROGLYCERIN 0.4 MG 25 EA TAB SL ONE (21:54)
--- NOTE | 2017-05-25 22:42 | RAD ---
Examination: XR CHEST 2 VIEWS dated 05/25/2017 9:54 PM PARENT TRAINER History: ARM PAIN Comparison: 04/14/2017 Technique: Frontal and lateral views of the chest Findings: The lungs are clear bilaterally. No pneumothorax or pleural effusion. The cardiomediastinal silhouette is within normal limits. Impression: No acute findings. Electronically signed by: Mark Schreiber MD 05/25/2017 10:41 PM PARENT TRAINER
--- NOTE | 2017-05-25 22:43 | RAD ---
Examination: XR SHOULDER 2 OR MORE VIEWS dated 05/25/2017 9:54 PM CERTIFIED REGISTERED LOCKSMITH History: ARM PAIN Comparison: None Technique: Two views of the left shoulder FINDINGS AND IMPRESSION: There is no acute fracture or dislocation of the left shoulder. No significant degenerative changes. Electronically signed by: Mark Schreiber MD 05/25/2017 10:42 PM CERTIFIED REGISTERED LOCKSMITH
[2017-05-25] MEDS ORDERED: cloNIDine HCL 0.1 MG TAB PO ONE (22:52)
[2017-05-25] MEDS ORDERED: KETOROLAC TROMETHAMINE INJ 30 MG/ML VIAL IV ONE (22:52)
[2017-05-26 00:20] VITALS: BP 157/96
== END 2017-05-26 00:20 | disposition home or self-care (01) ==
LOC: ER 20:31
DX: M79.602 Pain in left arm (principal); I10 Essential (primary) hypertension
CPT/HCPCS: 36415; 71046; 73030; 80053; 83880; 84484; 85025; 93005; J1885

== ENCOUNTER 2017-06-15 20:46 | Emergency (ER) | payer MEDICARE ==
[2017-06-15 21:01] VITALS: TEMP 99; O2SAT 98
[2017-06-15] MEDS ORDERED: hydrALAZINE HCl 20 MG/ML VIAL IM ONE (21:18)
[2017-06-15] MEDS ORDERED: KETOROLAC TROMETHAMINE INJ 60 MG/2 ML VIAL IM ONE (21:19)
--- NOTE | 2017-06-15 21:21 | ED.PDOC ---
History of Present Illness - General Chief Complaint: Headache Stated Complaint: headache since today, high B/P hasnt taken B/P med Time Seen by Provider: 06/15/17 21:12 Source: patient - History of Present Illness Timing/Duration: other - 9 hrs Quality: severe, throbbing Head Injury Location: temporal, occipital Recent Head Trauma: occasional headaches Improving Factors: nothing Worsening Factors: movement Associated Symptoms: denies symptoms Allergies/Adverse Reactions: Allergies NO KNOWN ALLERGY Allergy (Verified 06/15/17 21:01) Home Medications: Ambulatory Orders amLODIPine BESYLATE [Norvasc] 10 mg PO DAILY 04/27/16 Metoprolol Succinate [Metoprolol Succinate ER] 200 mg PO 04/14/17 Review of Systems - Review of Systems Constitutional: Denies: chills, fever, weakness EENTM: Denies: blurred vision, double vision Respiratory: Denies: cough, short of breath Cardiology: Denies: chest pain, edema, syncope Gastrointestinal/Abdominal: Denies: abdominal pain, nausea, vomiting Genitourinary: States: no symptoms reported Musculoskeletal: Denies: joint pain, muscle pain Skin: Denies: rash Neurological: States: headache. Denies: numbness, paresthesia, weakness Endocrine: States: no symptoms reported Hematologic/Lymphatic: States: no symptoms reported Past Medical History (General) - Patient Medical History Hx Seizures: No Hx Stroke: No Hx Dementia: No Hx Asthma: No Hx of COPD: No Hx Cardiac Disorders: No Hx Congestive Heart Failure: No Hx Pacemaker: No Hx Hypertension: Yes Hx Thyroid Disease: No Hx Diabetes: No Hx Gastroesophageal Reflux: No Hx Renal Disease: No Hx Cancer: No Hx of HIV: No Hx Hepatitis C: No Hx MRSA: No MRSA Source:: Wound Surgical History: no surgical history - Vaccination History Hx Tetanus, Diphtheria Vaccination: No Hx Influenza Vaccination: No Hx Pneumococcal Vaccination: No - Social History Hx Tobacco Use: No Hx Chewing Tobacco Use: Yes Hx Alcohol Use: No Hx Substance Use: No Hx Substance Use Treatment: No Hx Depression: No Hx Physical Abuse: No Hx Emotional Abuse: No Hx Suspected Abuse: No - Female History Patient : No Family Medical History - Family History Maternal Family History: No Known Name: mother Living Status: Cause of : cancer Hx Family Cancer: Yes - mom-lung;dad -lung,liver Paternal Family History: Unknown Name: father Living Status: Cause of : cancer Hx Family Cancer: Yes - lung and liver Physical Exam - Physical Exam General Appearance: Alert, Well Groomed Eyes, Ears, Nose, Throat Exam: PERRL/EOMI, pharynx normal Neck: full range of motion, supple, normal inspection Cardiovascular/Chest: regular rate, rhythm, no edema Respiratory: chest non-tender, lungs clear, normal breath sounds, no respiratory distress Extremity: normal inspection 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 Copy, Patient Portal Self Enrollment Instructions: DI for Headache Referrals: Mark Mendoza MD [Primary Care Provider] - 1-2 Weeks Home Medications: Ambulatory Orders amLODIPine BESYLATE [Norvasc] 10 mg PO DAILY 04/27/16 Metoprolol Succinate [Metoprolol Succinate ER] 200 mg PO 04/14/17
[2017-06-15] MEDS ORDERED: cloNIDine HCL 0.1 MG TAB PO ONE (22:18)
[2017-06-15] MEDS ORDERED: HYDROCOD/APAP 7.5/325 (ER DISP) #3 TAB PO ONE (22:18)
[2017-06-15 22:52] VITALS: BP 192/109
== END 2017-06-15 22:54 | disposition home or self-care (01) ==
LOC: ER 20:46
DX: G44.209 Tension-type headache, unspecified, not intractable (principal); I10 Essential (primary) hypertension
CPT/HCPCS: J0360; J1885

== ENCOUNTER 2017-07-19 15:29 | Emergency (ER) | payer MEDICARE ==
[2017-07-19 15:53] VITALS: TEMP 98.1
[2017-07-19] MEDS ORDERED: KETOROLAC TROMETHAMINE INJ 60 MG/2 ML VIAL IM ONE (16:23)
--- NOTE | 2017-07-19 16:26 | ED.PDOC ---
History of Present Illness - General Chief Complaint: General Stated Complaint: hip pain Time Seen by Provider: 07/19/17 16:16 Source: patient Exam Limitations: no limitations Additional Information: PT HAS HAD R HIP PAIN FOR 2 WEEKS. 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 NO FALLS OR TRAUMA. HAS TAKEN ALEVE SPORATICALLY WITHOUT RELIEF. HAS SEEN CHIROPRACTOR AND HAD ADJUSTMENTS. IS WORSE. PAIN R BUTTOCKS, NO RADIATION - History of Present Illness Severity: moderate Improving Factors: nothing Worsening Factors: movement, other - PRESSURE Allergies/Adverse Reactions: Allergies NO KNOWN ALLERGY Allergy (Verified 07/19/17 15:53) Home Medications: Ambulatory Orders amLODIPine BESYLATE [Norvasc] 10 mg PO DAILY 04/27/16 Metoprolol Succinate [Metoprolol Succinate ER] 200 mg PO 04/14/17 Indomethacin 50 mg PO TID PRN #14 cap 07/19/17 Methylprednisolone [Medrol Dose Bahman] 4 mg PO DAILY #1 tab 07/19/17 Review of Systems - Review of Systems Constitutional: Denies: chills, fever EENTM: States: no symptoms reported Respiratory: States: no symptoms reported Cardiology: States: no symptoms reported Gastrointestinal/Abdominal: Denies: nausea, vomiting Genitourinary: States: other - NO INCONTINENCE. Denies: dysuria, hematuria Musculoskeletal: Denies: back pain, joint pain, neck pain Skin: States: no symptoms reported Neurological: Denies: numbness, paresthesia, weakness Endocrine: States: no symptoms reported Hematologic/Lymphatic: States: no symptoms reported Past Medical History (General) - Patient Medical History Hx Seizures: No Hx Stroke: No Hx Dementia: No Hx Asthma: No Hx of COPD: No Hx Cardiac Disorders: No Hx Congestive Heart Failure: No Hx Pacemaker: No Hx Hypertension: Yes Hx Thyroid Disease: No Hx Diabetes: No Hx Gastroesophageal Reflux: No Hx Renal Disease: No Hx Cancer: No Hx of HIV: No Hx Hepatitis C: No Hx MRSA: No MRSA Source:: Wound Surgical History: no surgical history - Vaccination History Hx Tetanus, Diphtheria Vaccination: No Hx Influenza Vaccination: No Hx Pneumococcal Vaccination: No - Social History Hx Tobacco Use: No Hx Chewing Tobacco Use: Yes Hx Alcohol Use: No Hx Substance Use: No Hx Substance Use Treatment: No Hx Depression: No Hx Physical Abuse: No Hx Emotional Abuse: No Hx Suspected Abuse: No - Female History Patient : No Family Medical History - Family History Maternal Family History: No Known Name: mother Living Status: Cause of : cancer Hx Family Cancer: Yes - mom-lung;dad -lung,liver Paternal Family History: Unknown Name: father Living Status: Cause of : cancer Hx Family Cancer: Yes - lung and liver Physical Exam - Physical Exam General Appearance: Alert, No apparent distress Eye Exam: bilateral normal Ears, Nose, Throat: hearing grossly normal, normal ENT inspection Neck: full range of motion, supple Respiratory: lungs clear, normal breath sounds Cardiovascular/Chest: regular rate, rhythm, no murmur Gastrointestinal/Abdominal: non tender, soft, no organomegaly Back Exam: normal inspection, no CVA tenderness, no vertebral tenderness, other - TENDERNESS R BUTTOCKS OVER SCIATIC NOTCH Extremity: normal range of motion, non-tender, normal inspection Neurologic: no motor/sensory deficits, normal mood/affect, oriented x 3, other - NO FOOT DROP Skin Exam: normal color, warm/dry Lymphatic: no adenopathy Progress - Progress Progress: 07/19/17 17:37 NO CHANGE AFTER TORADOL. - EKG/XRAY/CT XRAY: hip - NEVLILE Departure - Departure Clinical Impression: Sciatica of right side Hypertension Qualifiers: Hypertension type: essential hypertension Qualified Code(s): I10 - Essential ( primary) hypertension Time of Disposition: 17:43 Disposition: Discharge to Home or Self Care Condition: Good Departure Forms: ED Discharge - Pt. Copy, Patient Portal Self Enrollment Instructions: DI for Sciatica Referrals: Mark Mendoza MD [Primary Care Provider] - 1-2 Weeks Prescriptions: Indomethacin 50 mg PO TID PRN #14 cap PRN Reason: Pain Methylprednisolone [Medrol Dose Bahman] 4 mg PO DAILY #1 tab Home Medications: Ambulatory Orders amLODIPine BESYLATE [Norvasc] 10 mg PO DAILY 04/27/16 Metoprolol Succinate [Metoprolol Succinate ER] 200 mg PO 04/14/17 Indomethacin 50 mg PO TID PRN #14 cap 07/19/17 Methylprednisolone [Medrol Dose Bahman] 4 mg PO DAILY #1 tab 07/19/17
--- NOTE | 2017-07-19 16:43 | RAD ---
EXAM DESCRIPTION: Hip,Right 2 Views CLINICAL HISTORY: 52 years Male, R HIP PAIN COMPARISON: None. TECHNIQUE: AP and frog-leg views FINDINGS: No fractures. No osseous or articular abnormalities. Unremarkable soft tissues. Mild lower lumbar spondylosis IMPRESSION: No fractures Electronically signed by: Vipin Dubois 07/19/2017 4:40 PM CDT
--- NOTE | 2017-07-19 16:43 | RAD ---
EXAM DESCRIPTION: Pelvis CLINICAL HISTORY: 52 years Male, R HIP PAIN COMPARISON: None. TECHNIQUE: AP pelvis FINDINGS: Bony pelvis is intact. Normal-appearing the symphysis and sacroiliac joints. No fractures. Hip joints are well-maintained. Unremarkable soft tissues IMPRESSION: Normal exam. No fractures Electronically signed by: Vipin Dubois 07/19/2017 4:41 PM CDT
[2017-07-19] MEDS ORDERED: TRIAMCINOLONE ACETONIDE INJ 40 MG/ML VIAL IM ONE (17:54)
[2017-07-19 18:27] VITALS: BP 168/99; O2SAT 99
== END 2017-07-19 18:15 | disposition home or self-care (01) ==
LOC: ER 15:29
DX: M54.31 Sciatica, right side (principal); I10 Essential (primary) hypertension
CPT/HCPCS: 72170; 73502; J1885; J3301

== ENCOUNTER 2017-08-12 18:18 | Emergency (ER) | payer MEDICARE ==
[2017-08-12 18:32] VITALS: TEMP 98
--- NOTE | 2017-08-12 18:56 | ED.PDOC ---
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 HE IS UNDER THE CARE OF DR. TAMEZ IN [place]. HE NOW PRESENT SWITH SEVERE PAIN TO THE RIGHT HIP. HE VOICES THAT THIS HIP HAS BEEN WITH FOR SEVERAL WEEKS AND IS SCHEDULED TO HAVE A JOINT INJECTION IN THE NEAR FUTURE. Timing/Duration: other - SEVERAL WEEKS Severity: severe Improving Factors: immobilization Worsening Factors: movement Allergies/Adverse Reactions: Allergies NO KNOWN ALLERGY Allergy (Verified 08/12/17 18:32) Home Medications: Ambulatory Orders amLODIPine BESYLATE [Norvasc] 10 mg PO DAILY 04/27/16 Metoprolol Succinate [Metoprolol Succinate ER] 200 mg PO 04/14/17 Indomethacin 50 mg PO TID PRN #14 cap 07/19/17 Methylprednisolone [Medrol Dose Bahman] 4 mg PO DAILY #1 tab 07/19/17 Acetamin W/Cod #3 Tab [Tylenol w/CODEINE #3] 1 ea PO Q6HR #20 tab 08/12/17 predniSONE See Taper PO DAILY #16 tab 08/12/17 Review of Systems - Review of Systems Constitutional: States: no symptoms reported EENTM: States: no symptoms reported Respiratory: States: no symptoms reported Cardiology: States: no symptoms reported Gastrointestinal/Abdominal: States: no symptoms reported Musculoskeletal: States: joint pain, joint swelling Skin: States: no symptoms reported Neurological: States: no symptoms reported Endocrine: States: no symptoms reported Hematologic/Lymphatic: States: no symptoms reported All other Systems: Reviewed and Negative, No Change from Baseline Past Medical History (General) - Patient Medical History Hx Seizures: No Hx Stroke: No Hx Dementia: No Hx Asthma: No Hx of COPD: No Hx Cardiac Disorders: No Hx Congestive Heart Failure: No Hx Pacemaker: No Hx Hypertension: Yes Hx Thyroid Disease: No Hx Diabetes: No Hx Gastroesophageal Reflux: No Hx Renal Disease: No Hx Cancer: No Hx of HIV: No Hx Hepatitis C: No Hx MRSA: No MRSA Source:: Wound - Vaccination History Hx Tetanus, Diphtheria Vaccination: No Hx Influenza Vaccination: No Hx Pneumococcal Vaccination: No - Social History Hx Tobacco Use: No Hx Chewing Tobacco Use: Yes Hx Alcohol Use: No Hx Substance Use: No Hx Substance Use Treatment: No Hx Depression: No Hx Physical Abuse: No Hx Emotional Abuse: No Hx Suspected Abuse: No - Female History Patient : No Family Medical History - Family History Maternal Family History: No Known Name: mother Living Status: Cause of : cancer Hx Family Cancer: Yes - mom-lung;dad -lung,liver Paternal Family History: Unknown Name: father Living Status: Cause of : cancer Hx Family Cancer: Yes - lung and liver Physical Exam - Physical Exam General Appearance: Anxious, Well Developed, Well Groomed, Well Hydrated, Well Nourished Eye Exam: bilateral normal Ears, Nose, Throat: hearing grossly normal Neck: non-tender, full range of motion, supple Respiratory: chest non-tender, lungs clear, normal breath sounds, no respiratory distress Cardiovascular/Chest: normal peripheral pulses, regular rate, rhythm, no edema, no gallop Gastrointestinal/Abdominal: normal bowel sounds, non tender Departure - Departure Clinical Impression: Acute gouty arthritis, Gouty arthropathy Time of Disposition: 19:01 Disposition: Discharge to Home or Self Care Condition: Fair Departure Forms: ED Discharge - Pt. Copy, Patient Portal Self Enrollment Diet: resume usual diet Referrals: Mark Mendoza MD [Primary Care Provider] - 1-2 Weeks Prescriptions: Acetamin W/Cod #3 Tab [Tylenol w/CODEINE #3] 1 ea PO Q6HR #20 tab predniSONE See Taper PO DAILY #16 tab Home Medications: Ambulatory Orders amLODIPine BESYLATE [Norvasc] 10 mg PO DAILY 04/27/16 Metoprolol Succinate [Metoprolol Succinate ER] 200 mg PO 04/14/17 Indomethacin 50 mg PO TID PRN #14 cap 07/19/17 Methylprednisolone [Medrol Dose Bahman] 4 mg PO DAILY #1 tab 07/19/17 Acetamin W/Cod #3 Tab [Tylenol w/CODEINE #3] 1 ea PO Q6HR #20 tab 08/12/17 predniSONE See Taper PO DAILY #16 tab 08/12/17
[2017-08-12] MEDS: methylPREDNISolone SODIUM SUC 125 MG/2 ML VIAL IM ONE (19:04)
[2017-08-12] MEDS: ONDANSETRON INJ 4 MG/2 ML VIAL IM ONE (19:04)
[2017-08-12] MEDS: MORPHINE SULFATE INJ 10 MG/ML VIAL IM ONE (19:04)
[2017-08-12 19:29] VITALS: BP 193/115; O2SAT 98
== END 2017-08-12 19:29 | disposition home or self-care (01) ==
LOC: ER 18:18
DX: M10.9 Gout, unspecified (principal); I10 Essential (primary) hypertension; Z87.891 Personal history of nicotine dependence
CPT/HCPCS: J2270; J2405; J2930

== ENCOUNTER 2018-12-11 17:57 | Emergency (ER) | payer MEDICARE ==
[2018-12-11] MEDS ORDERED: HYDROcodone 7.5MG/APAP 325MG 1 EA TAB PO ONE (18:19)
--- NOTE | 2018-12-11 18:36 | RAD ---
EXAM: Chest,1 View CLINICAL INDICATION: Left shoulder discomfort COMPARISON: 05/25/2017 FINDINGS: A single view of the chest was obtained. The heart size is normal. The pulmonary vascularity is unremarkable. The lungs are clear. There is no consolidation, infiltrate, pleural effusion, or pneumothorax. IMPRESSION: No evidence of active pulmonary disease. Electronically signed by: Prabhu Mckeon MD 12/11/2018 6:34 PM CDT
[2018-12-11] MEDS ORDERED: POTASSIUM CHLORIDE ELIXIR 20 MEQ/15 ML UD PO ONE (18:55)
--- NOTE | 2018-12-11 19:01 | ED.PDOC ---
History of Present Illness - General Chief Complaint: Upper Extremity Injury Stated Complaint: left shoulder pain Time Seen by Provider: 12/11/18 17:58 Source: patient Exam Limitations: no limitations - History of Present Illness Initial Comments: the patient is a 53-year-old male presenting to the emergency room with a headache from the left posterior side of his head down to pain to his left shoulder starting earlier today. He feels like there is a muscle spasming over his left shoulder. No palpitations. No chest pain. No syncopal or near syncope. He does work out in the heat somewhat. He has been getting a little bit dehydrated. He does have a history of a low potassium. Timing/Duration: other - 8 hours Severity: moderate Improving Factors: nothing Worsening Factors: nothing Associated Symptoms: headaches, malaise Allergies/Adverse Reactions: Allergies NO KNOWN ALLERGY Allergy (Verified 08/12/17 18:32) Home Medications: Ambulatory Orders amLODIPine BESYLATE [Norvasc] 10 mg PO DAILY 04/27/16 Metoprolol Succinate [Metoprolol Succinate ER] 200 mg PO 04/14/17 Indomethacin 50 mg PO TID PRN #14 cap 07/19/17 Methylprednisolone [Medrol Dose Bahman] 4 mg PO DAILY #1 tab 07/19/17 Acetamin W/Cod #3 Tab [Tylenol w/CODEINE #3] 1 ea PO Q6HR #20 tab 08/12/17 Acetaminophen W/ Codeine [Tylenol W/ CODEINE #3] 1 ea PO Q6HR #20 08/12/17 predniSONE See Taper PO DAILY #16 tab 08/12/17 Potassium Chloride [Potassium Chloride ER] 10 meq PO DAILY #14 tab 12/11/18 Review of Systems - Review of Systems Constitutional: States: malaise EENTM: States: no symptoms reported Respiratory: States: no symptoms reported Cardiology: States: no symptoms reported Gastrointestinal/Abdominal: States: no symptoms reported Genitourinary: States: no symptoms reported Musculoskeletal: States: see HPI Skin: States: no symptoms reported Neurological: States: see HPI Endocrine: States: no symptoms reported All other Systems: No Change from Baseline Past Medical History (General) - Patient Medical History Hx Seizures: No Hx Stroke: No Hx Dementia: No Hx Asthma: No Hx of COPD: No Hx Cardiac Disorders: No Hx Congestive Heart Failure: No Hx Pacemaker: No Hx Hypertension: Yes Hx Thyroid Disease: No Hx Diabetes: No Hx Gastroesophageal Reflux: No Hx Renal Disease: No Hx Cancer: No Hx of HIV: No Hx Hepatitis C: No Hx MRSA: No MRSA Source:: Wound Surgical History: no surgical history - Vaccination History Hx Tetanus, Diphtheria Vaccination: No Hx Influenza Vaccination: No Hx Pneumococcal Vaccination: No - Social History Hx Tobacco Use: No Hx Chewing Tobacco Use: Yes Hx Alcohol Use: No Hx Substance Use: No Hx Substance Use Treatment: No Hx Depression: No Hx Physical Abuse: No Hx Emotional Abuse: No Hx Suspected Abuse: No - Female History Patient : No Family Medical History - Family History Maternal Family History: No Known Name: mother Living Status: Cause of : cancer Hx Family Cancer: Yes - mom-lung;dad -lung,liver Paternal Family History: Unknown Name: father Living Status: Cause of : cancer Hx Family Cancer: Yes - lung and liver Physical Exam - Physical Exam General Appearance: Alert, Comfortable, No apparent distress Eye Exam: bilateral normal Ears, Nose, Throat: hearing grossly normal, normal ENT inspection Neck: non-tender, full range of motion Respiratory: lungs clear, normal breath sounds, no respiratory distress, no accessory muscle use Cardiovascular/Chest: normal peripheral pulses, regular rate, rhythm, no edema Peripheral Pulses: radial,right: 2+, radial,left: 2+, dorsalis pedis,right: 2+, dorsalis pedis,left: 2+ Gastrointestinal/Abdominal: non tender, soft Rectal Exam: deferred Back Exam: normal inspection, no CVA tenderness Extremity: normal range of motion, no pedal edema, no calf tenderness, normal capillary refill, other - mild tenderness to palpation over the proximal trapezius where it joins the occipital area. Mild tenderness over what appears to be the biceps insertion. 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 He does appear to be having some muscle spasm and muscle tenderness in that area likely giving him a tension headache. Laboratory work does show some mild dehydration as well as a very mild rise in his muscle enzymes consistent with that as well. He also has a very mild rise in his liver function tests. He needs to double the amount of fluids that he takes for the next few days. I would also encourage him to hold the atorvastatin for about 2 weeks and then restart it. Additionally he does have some hypokalemia and received a dose of oral potassium here. He'll be written for 10 meq once daily to take as an outpatient. He needs to follow back up with his primary care doctor next week. ER warnings were given. - Results/Orders Results/Orders: 12/11/18 18:30 EKG STAT Laboratory Results - last 24 hr 12/11/18 12/11/18 18:18 18:18 WBC 10.8 RBC 4.50 L Hgb 14.2 Hct 41.1 L MCV 91.2 MCH 31.6 H MCHC 34.7 RDW 13.9 Plt Count 228 MPV 8.5 Absolute Neuts (auto) 6.30 Absolute Lymphs (auto) 2.80 Absolute Monos (auto) 1.10 H Absolute Eos (auto) 0.50 H Absolute Basos (auto) 0.10 Neutrophils % 58.4 Lymphocytes % 26.2 Monocytes % 10.3 H Eosinophils % 4.2 Basophils % 0.9 Sodium 138 Potassium 3.4 L Chloride 106 Carbon Dioxide 22 Anion Gap 13.4 BUN 18 Creatinine 1.26 BUN/Creatinine Ratio 14.3 Random Glucose 101 Serum Osmolality 277.7 Calcium 9.2 Magnesium 2.0 Total Bilirubin 0.7 AST 53 H ALT 71 H Alkaline Phosphatase 83 Creatine Kinase 339 H* CK-MB (CK-2) 8.2 H* CK-MB (CK-2) % 2.42 Troponin I < 0.02 Serum Total Protein 7.0 Albumin 4.0 Globulin 3.0 Albumin/Globulin Ratio 1.3 chest x-ray is within normal limits. EKG shows normal sinus rhythm at 67 bpm. Normal axis. Normal R-wave progression. No ST segment or T-wave changes in dicative of acute ischemia. Departure - Departure Clinical Impression: Dehydration, Tension headache, Hypokalemia, Muscle spasm Disposition: Discharge to Home or Self Care Condition: Fair Departure Forms: ED Discharge - Pt. Copy, Patient Portal Self Enrollment Instructions: Muscle Spasms (DC) Diet: regular diet Activity: increase activity as tolerated Referrals: Mark Mendoza MD [Primary Care Provider] - 1-2 Weeks Prescriptions: Potassium Chloride [Potassium Chloride ER] 10 meq PO DAILY #14 tab Home Medications: Ambulatory Orders amLODIPine BESYLATE [Norvasc] 10 mg PO DAILY 04/27/16 Metoprolol Succinate [Metoprolol Succinate ER] 200 mg PO 04/14/17 Indomethacin 50 mg PO TID PRN #14 cap 07/19/17 Methylprednisolone [Medrol Dose Bahman] 4 mg PO DAILY #1 tab 07/19/17 Acetamin W/Cod #3 Tab [Tylenol w/CODEINE #3] 1 ea PO Q6HR #20 tab 08/12/17 Acetaminophen W/ Codeine [Tylenol W/ CODEINE #3] 1 ea PO Q6HR #20 08/12/17 predniSONE See Taper PO DAILY #16 tab 08/12/17 Potassium Chloride [Potassium Chloride ER] 10 meq PO DAILY #14 tab 12/11/18 Additional Instructions: the patient's 53-year-old male presenting to the emergency room secondary to left shoulder pain and headache. He does appear to be having some muscle spasm and muscle tenderness in that area likely giving him a tension headache. Laboratory work does show some mild dehydration as well as a very mild rise in his muscle enzymes consistent with that as well. He also has a very mild rise in his liver function tests. He needs to double the amount of fluids that he takes for the next few days. I would also encourage him to hold the atorvastatin for about 2 weeks and then restart it. Additionally he does have some hypokalemia and received a dose of oral potassium here. He'll be written for 10 meq once daily to take as an outpatient. He needs to follow back up with his primary care doctor next week. ER warnings were given.
[2018-12-11 19:08] VITALS: TEMP 99.2; O2SAT 98
[2018-12-11 19:26] VITALS: BP 167/103
== END 2018-12-11 19:27 | disposition home or self-care (01) ==
LOC: ER 17:57
DX: M62.838 Other muscle spasm (principal); E86.0 Dehydration; G44.209 Tension-type headache, unspecified, not intractable; E87.6 Hypokalemia; I10 Essential (primary) hypertension; Z87.891 Personal history of nicotine dependence; Z79.899 Other long term (current) drug therapy

== ENCOUNTER → 2019-03-03 | Outpatient (CLI) | payer MEDICARE ==
--- NOTE | 2019-03-04 13:41 | US ---
EXAM DESCRIPTION: Soft Tissue,Extremity: ULTRASOUND. CLINICAL HISTORY: 53 years Male MASS RIGHT LOWER EXT COMPARISON: None Available. TECHNIQUE: Transcutaneous scanning: Espinal-scale and Doppler modes. FINDINGS: Scanning of the palpable area of swelling on the left posterior ankle. Relatively homogeneous hypoechoic tissue compared to surrounding adipose tissue. Minimal echogenic material in the periphery of this collection. Dimensions are 6.6 x 2.8 x 1.2 cm. Nonvascular. No dominant solid mass. No large calcifications. IMPRESSION: Complicated effusion, hemorrhage, or seroma corresponding to palpable mass posterior left ankle. Electronically signed by: Tay Yeboah MD 03/04/2019 1:39 PM [facility]
== END ==
LOC: US 15:30
PROVIDERS: ATTEND Internal Medicine Rheumatology
DX: R22.41 Localized swelling, mass and lump, right lower limb (principal)

== ENCOUNTER 2019-04-11 14:18 | Emergency (ER) | payer MEDICARE ==
[2019-04-11 15:09] VITALS: TEMP 97.9; O2SAT 97
--- NOTE | 2019-04-11 15:11 | RAD ---
EXAM DESCRIPTION: Foot,Right 3 Views CLINICAL HISTORY: acute right foot pain COMPARISON: None Available. TECHNIQUE: AP, LATERAL, AND OBLIQUE FINDINGS: The visualized bones appear poorly mineralized. No acute fracture or dislocation. 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 The soft tissues appear grossly unremarkable. 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 Electronically signed by: Zamzam Taveras MD 04/11/2019 3:10 PM [facility]
--- NOTE | 2019-04-11 15:43 | ED.PDOC ---
History of Present Illness - General Chief Complaint: General Stated Complaint: gout flare up Time Seen by Provider: 04/11/19 14:44 Source: patient - History of Present Illness Initial Comments: 53 yo male with PMH of gout who presents with cc of right foot pain. No acute injury/trauma reported, began last night and has worsened since onset, located to top of foot near ankle and radiates across to each side, constant, "like someone is twisting a knife in there", severe, worse with movement and palpation, reports minimal swelling to ankle but feels unchanged from usual. Denies any redness/warmth, weakness, numbness, fevers, chills. Nothing tried for relief. Takes Colchicine and Allopurinol for gout. Feels it is a gout flare - states has acute gout flares in joints all over his body and is followed by rheum. Allergies/Adverse Reactions: Allergies NO KNOWN ALLERGY Allergy (Verified 08/12/17 18:32) Home Medications: Ambulatory Orders amLODIPine BESYLATE [Norvasc] 10 mg PO DAILY 04/27/16 Metoprolol Succinate [Metoprolol Succinate ER] 200 mg PO 04/14/17 Indomethacin 50 mg PO TID PRN #14 cap 07/19/17 Methylprednisolone [Medrol Dose Bahman] 4 mg PO DAILY #1 tab 07/19/17 Acetamin W/Cod #3 Tab [Tylenol w/CODEINE #3] 1 ea PO Q6HR #20 tab 08/12/17 Acetaminophen W/ Codeine [Tylenol W/ CODEINE #3] 1 ea PO Q6HR #20 08/12/17 predniSONE See Taper PO DAILY #16 tab 08/12/17 Potassium Chloride [Potassium Chloride ER] 10 meq PO DAILY #14 tab 12/11/18 Prednisone 60 mg PO DAILY 5 Days #15 tab 04/11/19 Tramadol HCl 50 mg PO Q6H PRN 5 Days #15 tab 04/11/19 Review of Systems - Review of Systems Review of Systems: 04/11/19 15:42 as per HPI All other Systems: Reviewed and Negative Past Medical History (General) - Patient Medical History Hx Seizures: No Hx Stroke: No Hx Dementia: No Hx Asthma: No Hx of COPD: No Hx Cardiac Disorders: No Hx Congestive Heart Failure: No Hx Pacemaker: No Hx Hypertension: Yes Hx Thyroid Disease: No Hx Diabetes: No Hx Gastroesophageal Reflux: No Hx Renal Disease: No Hx Cancer: No Hx of HIV: No Hx Hepatitis C: No Hx MRSA: No MRSA Source:: Wound - Vaccination History Hx Tetanus, Diphtheria Vaccination: No Hx Influenza Vaccination: No Hx Pneumococcal Vaccination: No - Social History Hx Tobacco Use: No Hx Chewing Tobacco Use: Yes Hx Alcohol Use: No Hx Substance Use: No Hx Substance Use Treatment: No Hx Depression: No Hx Physical Abuse: No Hx Emotional Abuse: No Hx Suspected Abuse: No - Activities of Daily Living Hospice Agency (if applicable):: None - Female History Patient is a Female of Child Bearing Age (10 -59 yrs old): No Patient : No - Triage Comment ED Triage Comment: pt voices gout flare up since this morning. pain to right foot. Family Medical History - Family History Maternal Family History: No Known Name: mother Living Status: Cause of : cancer Hx Family Cancer: Yes - mom-lung;dad -lung,liver Paternal Family History: Unknown Name: father Living Status: Cause of : cancer Hx Family Cancer: Yes - lung and liver Physical Exam - Physical Exam General Appearance: Alert, Comfortable, No apparent distress Eye Exam: bilateral normal Ears, Nose, Throat: hearing grossly normal, normal ENT inspection Neck: full range of motion, supple, normal inspection Respiratory: lungs clear, normal breath sounds, no respiratory distress Cardiovascular/Chest: normal peripheral pulses, regular rate, rhythm, no edema, no murmur Gastrointestinal/Abdominal: non tender, soft Back Exam: normal inspection Extremity: normal capillary refill, other - Right foot with minimal swelling around ankle, slightly worse laterally but no apparent deformities/redness/warmth/discoloration. 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, no motor/sensory deficits, alert, normal mood/affect, oriented x 3 Skin Exam: normal color, warm/dry Progress - Progress Progress: 04/11/19 15:45 Acute R foot pain -consider acute arthropathy from osteoarthritis vs ankle sprain/strain vs gout vs frx vs other -XR R foot obtained and shows no acute frx's - pt does have evidence of significant arthropathy throughout the tarsal bones noted -discussed findings and suspect flare of arthropathy of foot most likely, does not appear like gout given no redness/warmth -will treat with Toradol & Decadron here in ED & send home on Rx of prednisone x5 days, OTC analgesics, and Tramadol PRN breakthrough pain. F/u closely with PCP. Return warnings discussed. Tyler Estrella MD Billing #[id number] Departure - Departure Clinical Impression: Arthropathy of right foot Time of Disposition: 15:48 Disposition: Discharge to Home or Self Care Condition: Good Departure Forms: ED Discharge - Pt. Copy, Patient Portal Self Enrollment Instructions: Osteoarthritis (DC), Gout (DC) Diet: other - gout diet Referrals: Mark Mendoza MD [Primary Care Provider] - 1-2 Weeks Prescriptions: Prednisone 60 mg PO DAILY 5 Days #15 tab Tramadol HCl 50 mg PO Q6H PRN 5 Days #15 tab PRN Reason: Pain Home Medications: Ambulatory Orders amLODIPine BESYLATE [Norvasc] 10 mg PO DAILY 04/27/16 Metoprolol Succinate [Metoprolol Succinate ER] 200 mg PO 04/14/17 Indomethacin 50 mg PO TID PRN #14 cap 07/19/17 Methylprednisolone [Medrol Dose Bahman] 4 mg PO DAILY #1 tab 07/19/17 Acetamin W/Cod #3 Tab [Tylenol w/CODEINE #3] 1 ea PO Q6HR #20 tab 08/12/17 Acetaminophen W/ Codeine [Tylenol W/ CODEINE #3] 1 ea PO Q6HR #20 08/12/17 predniSONE See Taper PO DAILY #16 tab 08/12/17 Potassium Chloride [Potassium Chloride ER] 10 meq PO DAILY #14 tab 12/11/18 Prednisone 60 mg PO DAILY 5 Days #15 tab 04/11/19 Tramadol HCl 50 mg PO Q6H PRN 5 Days #15 tab 04/11/19 Additional Instructions: Continue ibuprofen 600 mg every 6 hours for next 3-5 days and then take as needed every 6 hours. Take prednisone as prescribed. Take the Tramadol as needed for breakthrough pain. Return if the joint becomes red and warm or if you develop fever or other concerning symptoms. Follow up in 1-2 weeks with your primary care doctor.
[2019-04-11] MEDS: KETOROLAC TROMETHAMINE INJ 60 MG/2 ML VIAL IM ONE (15:46)
[2019-04-11] MEDS: DEXAMETHASONE INJ 4 MG/ML VIAL IM ONE (15:47)
[2019-04-11 16:09] VITALS: BP 170/95
== END 2019-04-11 16:05 | disposition home or self-care (01) ==
LOC: ER 14:18
DX: M19.071 Primary osteoarthritis, right ankle and foot (principal); M10.9 Gout, unspecified; I10 Essential (primary) hypertension; Z87.891 Personal history of nicotine dependence; Z79.899 Other long term (current) drug therapy
CPT/HCPCS: 73630; J1100; J1885

== ENCOUNTER → 2019-05-12 | Outpatient (CLI) | payer MEDICARE ==
--- NOTE | 2019-05-12 11:39 | RAD ---
EXAM DESCRIPTION: Ankle,Left 3 Views CLINICAL HISTORY: 54 years Male, ANKLE PAIN COMPARISON: None available. TECHNIQUE: AP, oblique and lateral radiographs. FINDINGS: The visualized bones appear poorly mineralized. No acute fracture or dislocation. The ankle mortise is intact. Small plantar and posterior calcaneal spurs. Midfoot arthropathy. The soft tissues appear grossly unremarkable. IMPRESSION: Small plantar and posterior calcaneal spurs. Midfoot arthropathy. Electronically signed by: Zamzam Taveras MD 05/12/2019 10:39 AM [facility]
== END ==
LOC: RAD 08:09
PROVIDERS: ATTEND Orthopaedic Surgery
DX: M67.472 Ganglion, left ankle and foot (principal); M77.32 Calcaneal spur, left foot; M12.9 Arthropathy, unspecified

== ENCOUNTER → 2019-05-13 | Outpatient (CLI) | payer MEDICARE ==
--- NOTE | 2019-05-13 13:02 | MRI ---
EXAM DESCRIPTION: Ankle,Left CLINICAL HISTORY: 54 years Male, MASS OF ANKLE COMPARISON: Radiographs of left ankle dated 05/12/2019. TECHNIQUE: Multiplanar multiecho imaging of the left ankle was performed without gadolinium administration. FINDINGS: Flexor tendons: Normal Extensor tendons: Normal Peroneal tendons: Normal Achillies tendon: Normal Plantar fascia: Normal Lateral ligaments: Anterior tibiofibular ligament: Intact Posterior tibiofibular ligament: Intact Anterior talofibular ligament: Mild sprain Calcaneofibular ligament: Intact Posterior talofibular ligament: Mild sprain Medial ligaments: Deep Deltoid: Intact Superficial deltoid: Intact Spring ligament: Intact Tarsal tunnel: Normal Sinus tarsi: Normal Bone marrow: Intracortical cysts are noted in the calcaneus. Degenerative changes are also identified in the midfoot. Additional findings: Fluid collection measuring approximately 3.2 x 0.5 x 7.1 cm in transverse, anteroposterior and craniocaudal dimensions is noted along the posterior aspect of the distal increased tendon. IMPRESSION: Fluid collection measuring approximately 3.2 x 0.5 x 7.1 cm in transverse, anteroposterior and craniocaudal dimensions is noted along the posterior aspect of the distal increased tendon. Electronically signed by: Zamzam Taveras MD 05/13/2019 1:01 PM [facility]
== END ==
LOC: MRI 07:03
PROVIDERS: ATTEND Orthopaedic Surgery
DX: R22.42 Localized swelling, mass and lump, left lower limb (principal)

== ENCOUNTER 2019-09-19 13:45 | Emergency (ER) | payer MEDICARE ==
[2019-09-19 14:27] VITALS: O2SAT 96
[2019-09-19] MEDS ORDERED: KETOROLAC TROMETHAMINE INJ 60 MG/2 ML VIAL IM ONE (15:20)
[2019-09-19] MEDS ORDERED: ONDANSETRON ODT 8 MG TAB SL ONE (15:20)
[2019-09-19] MEDS ORDERED: DEXAMETHASONE INJ 10 MG/ML VIAL IM ONE (15:20)
[2019-09-19] MEDS ORDERED: HYDROcodone 7.5MG/APAP 325MG 1 EA TAB PO ONE (15:21)
--- NOTE | 2019-09-19 16:01 | ED.PDOC ---
History of Present Illness - General Chief Complaint: Lower Extremity Injury Stated Complaint: left knee pain Time Seen by Provider: 09/19/19 15:15 Source: patient, RN notes reviewed, Vital Signs reviewed Exam Limitations: no limitations - History of Present Illness Initial Comments: Patient is a 54-year-old white male who presents with complaints of left knee pain. It is stabbing and sharp in nature. It is consistent with his previous episodes and flares of gout. The pain is severe in intensity. Worse with movement or palpation. Is not improved with his normal medications of colchicine. Patient denies any fever, chills, nausea, vomiting, diarrhea. Timing/Duration: 1 week Severity: severe Improving Factors: nothing Worsening Factors: movement Associated Symptoms: denies symptoms Allergies/Adverse Reactions: Allergies NO KNOWN ALLERGY Allergy (Verified 08/12/17 18:32) Home Medications: Ambulatory Orders amLODIPine BESYLATE [Norvasc] 10 mg PO DAILY 04/27/16 Metoprolol Succinate [Metoprolol Succinate ER] 200 mg PO 04/14/17 Indomethacin 50 mg PO TID PRN #14 cap 07/19/17 Methylprednisolone [Medrol Dose Bahman] 4 mg PO DAILY #1 tab 07/19/17 Acetamin W/Cod #3 Tab [Tylenol w/CODEINE #3] 1 ea PO Q6HR #20 tab 08/12/17 Acetaminophen W/ Codeine [Tylenol W/ CODEINE #3] 1 ea PO Q6HR #20 08/12/17 predniSONE See Taper PO DAILY #16 tab 08/12/17 Potassium Chloride [Potassium Chloride ER] 10 meq PO DAILY #14 tab 12/11/18 Prednisone 60 mg PO DAILY 5 Days #15 tab 04/11/19 Tramadol HCl 50 mg PO Q6H PRN 5 Days #15 tab 04/11/19 Acetaminophen W/ Codeine [Tylenol W/ CODEINE #3] 1 tablet PO Q6H PRN #8 09/19/19 Methylprednisolone [Medrol Dose Bahman] 4 mg PO DAILY 6 Days #21 tab 09/19/19 Review of Systems - Review of Systems Constitutional: States: no symptoms reported, see HPI. Denies: chills, fever, malaise EENTM: States: no symptoms reported. Denies: blurred vision, double vision Respiratory: States: no symptoms reported. Denies: cough, short of breath, stridor Cardiology: States: no symptoms reported. Denies: chest pain, palpitations, syncope Gastrointestinal/Abdominal: States: no symptoms reported. Denies: abdominal pain, diarrhea, nausea, vomiting Genitourinary: States: no symptoms reported. Denies: discharge, dysuria, frequency Musculoskeletal: States: see HPI, gout, joint swelling - Left knee Skin: States: no symptoms reported. Denies: change in color, rash Neurological: States: no symptoms reported. Denies: paresthesia, tingling, wea kness Endocrine: States: no symptoms reported Hematologic/Lymphatic: States: no symptoms reported All other Systems: Reviewed and Negative Past Medical History (General) - Patient Medical History Hx Seizures: No Hx Stroke: No Hx Dementia: No Hx Asthma: No Hx of COPD: No Hx Cardiac Disorders: No Hx Congestive Heart Failure: No Hx Pacemaker: No Hx Hypertension: Yes Hx Thyroid Disease: No Hx Diabetes: No Hx Gastroesophageal Reflux: No Hx Renal Disease: No Hx Cancer: No Hx of HIV: No Hx Hepatitis C: No Hx MRSA: No MRSA Source:: Wound Surgical History: other - Vaccination History Hx Tetanus, Diphtheria Vaccination: No Hx Influenza Vaccination: No Hx Pneumococcal Vaccination: No - Social History Hx Tobacco Use: No Hx Chewing Tobacco Use: Yes Hx Alcohol Use: No Hx Substance Use: No Hx Substance Use Treatment: No Hx Depression: No Hx Physical Abuse: No Hx Emotional Abuse: No Hx Suspected Abuse: No - Female History Patient : No Family Medical History - Family History Maternal Family History: No Known Name: mother Living Status: Cause of : cancer Hx Family Cancer: Yes - mom-lung;dad -lung,liver Paternal Family History: Unknown Name: father Living Status: Cause of : cancer Hx Family Cancer: Yes - lung and liver Physical Exam - Physical Exam General Appearance: Alert, Anxious, Obvious distress, Well Developed, Well Groomed, Well Hydrated, Well Nourished Eye Exam: bilateral normal Ears, Nose, Throat: hearing grossly normal, normal ENT inspection, normal pharynx Neck: non-tender, full range of motion, supple, normal inspection Respiratory: chest non-tender, lungs clear, normal breath sounds, no respiratory distress Cardiovascular/Chest: normal peripheral pulses, regular rate, rhythm, no edema, no gallop, no murmur Peripheral Pulses: radial,right: 2+, radial,left: 2+ Gastrointestinal/Abdominal: normal bowel sounds, non tender, soft Back Exam: normal inspection, no CVA tenderness, no vertebral tenderness Extremity: swelling - Left knee swelling with tenderness to palpation and movement. No crepitus. Neurovascularly intact distally. 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 09/19/19 16:02 Patient's symptoms have improved markedly after p.o. Lester, IM Toradol and Decadron IM. Plan on discharge home with a Medrol Dosepak. Patient plans on taking [id number] Motrin, 800 mg 3 times daily for pain and will continue on with his regular gout medications. Patient to follow-up with his PCP in 2 to 3 days. I discussed this plan of care with the patient and he voices understanding and agreement with the plan of care.. Mateo Martins M.D. #[id number] Departure - Departure Clinical Impression: Gout attack Qualifiers: Gout site: knee Gout etiology: unspecified cause Laterality: left Qualified Code(s): M10.9 - Gout, unspecified Time of Disposition: 16:04 Disposition: Discharge to Home or Self Care Condition: Good Departure Forms: ED Discharge - Pt. Copy, Patient Portal Self Enrollment Instructions: Gout (DC) Referrals: Tori Seo FNP [Primary Care Provider] - 1-5 Days Prescriptions: Acetaminophen W/ Codeine [Tylenol W/ CODEINE #3] 1 tablet PO Q6H PRN #8 PRN Reason: Pain Methylprednisolone [Medrol Dose Bahman] 4 mg PO DAILY 6 Days #21 tab Home Medications: Ambulatory Orders amLODIPine BESYLATE [Norvasc] 10 mg PO DAILY 04/27/16 Metoprolol Succinate [Metoprolol Succinate ER] 200 mg PO 04/14/17 Indomethacin 50 mg PO TID PRN #14 cap 07/19/17 Methylprednisolone [Medrol Dose Bahman] 4 mg PO DAILY #1 tab 07/19/17 Acetamin W/Cod #3 Tab [Tylenol w/CODEINE #3] 1 ea PO Q6HR #20 tab 08/12/17 Acetaminophen W/ Codeine [Tylenol W/ CODEINE #3] 1 ea PO Q6HR #20 08/12/17 predniSONE See Taper PO DAILY #16 tab 08/12/17 Potassium Chloride [Potassium Chloride ER] 10 meq PO DAILY #14 tab 12/11/18 Prednisone 60 mg PO DAILY 5 Days #15 tab 04/11/19 Tramadol HCl 50 mg PO Q6H PRN 5 Days #15 tab 04/11/19 Acetaminophen W/ Codeine [Tylenol W/ CODEINE #3] 1 tablet PO Q6H PRN #8 09/19/19 Methylprednisolone [Medrol Dose Bahman] 4 mg PO DAILY 6 Days #21 tab 09/19/19
[2019-09-19 16:36] VITALS: BP 187/111; TEMP 97.4
== END 2019-09-19 16:20 | disposition home or self-care (01) ==
LOC: ER 13:45
DX: M10.9 Gout, unspecified (principal); I10 Essential (primary) hypertension; Z79.899 Other long term (current) drug therapy
CPT/HCPCS: J1100; J1885

== ENCOUNTER → 2019-10-04 | Outpatient (CLI) | payer OTHER, MEDICARE | LOC: YCFC.O 09:09 | PROVIDERS: ATTEND Nurse Practitioner | DX: Z00.00 Encounter for general adult medical examination without abnormal findings (principal); I10 Essential (primary) hypertension; R53.83 Other fatigue ==

== ENCOUNTER 2019-10-30 15:03 | Emergency (ER) | payer OTHER, MEDICARE ==
[2019-10-30] MEDS ORDERED: KETOROLAC TROMETHAMINE INJ 30 MG/ML VIAL IM ONE (15:14)
--- NOTE | 2019-10-30 15:42 | RAD ---
EXAM: Chest,1 View CLINICAL INDICATION: Shortness of breath COMPARISON: 12/13/2018 FINDINGS: A single view of the chest was obtained. The heart size is normal. The pulmonary vascularity is unremarkable. The lungs are clear. There is no consolidation, infiltrate, pleural effusion, or pneumothorax. IMPRESSION: No evidence of active pulmonary disease. Electronically signed by: Prabhu Mckeon MD 10/30/2019 3:41 PM CDT
--- NOTE | 2019-10-30 16:42 | CT ---
EXAM: CT Cervical Spine Without Intravenous Contrast CLINICAL HISTORY: The patient is 54 years old and is Male; hit head on bottom of pool yesterday pm TECHNIQUE: Axial computed tomography images of the cervical spine without intravenous contrast. Sagittal and coronal reformatted images were created and reviewed. This CT exam was performed using one or more of the following dose reduction techniques: automated exposure control, adjustment of the mA and/or kV according to patient size, and/or use of iterative reconstruction technique. COMPARISON: CT cervical spine September 17, 2016. FINDINGS: Vertebrae: No acute cervical spine fracture identified. Small T3 superior endplate Schmorl's node, old/chronic in appearance. However clinical correlation is suggested. Atlantoodontoid degenerative changes. Discs/spinal canal/neural foramina: Small disc osteophyte complexes C3-4 C5-6 and C6-7 without significant central canal stenosis. Mild bilateral neural foraminal narrowing C6-7. Skull base: Left occipital condyle fracture, appears acute. This is not significantly displaced and best visualized on the coronal reconstructions, image #22. Soft tissues: Unremarkable. Pleural space: No apical pneumothorax. IMPRESSION: 1. Left occipital condyle fracture, appears acute. This is not significantly displaced. 2. No acute cervical spine fracture identified. 3. Small T3 superior endplate Schmorl's node, old/chronic in appearance. However, clinical correlation is suggested. 4. Degenerative changes in the spine as above. THIS REPORT CONTAINS FINDINGS THAT MAY BE CRITICAL TO PATIENT CARE: The findings were verbally discussed via telephone conference with Dr. Alonso 4:40 PM central time October 30, 2019. The results were acknowledged and understood. Electronically signed by: Samia Robles MD 10/30/2019 4:41 PM CDT
--- NOTE | 2019-10-30 17:14 | CT ---
EXAM DESCRIPTION: Head CLINICAL HISTORY: 54 years Male hit head on bottom of pool yesterday pm COMPARISON: CT scan of the cervical spine performed on the right. TECHNIQUE: Images were obtained in axial, sagittal, and coronal planes. This exam was performed according to our departmental dose-optimization program which includes use of Automated Exposure Control, adjustment of the mA and/or kV according to patient size and/or use of iterative reconstruction technique. FINDINGS: Ventricular system appears normal. No abnormal areas of increased or decreased attenuation seen. No extra-axial fluid collections noted. Nondisplaced fracture left occipital condyle again noted. No additional skull fracture. Sclerotic changes left mastoid air cells. Unremarkable paranasal sinuses. IMPRESSION: No acute intracranial abnormality. No evidence for hemorrhage, mass lesion, or large acute infarction.. Nondisplaced fracture left occipital condyle again noted. Electronically signed by: Megan Aguayo MD 10/30/2019 5:13 PM CDT
[2019-10-30] MEDS ORDERED: HYDROcodone 7.5MG/APAP 325MG 1 EA TAB PO ONE (17:25)
--- NOTE | 2019-10-30 17:28 | ED.PDOC ---
History of Present Illness - General Chief Complaint: Head Injury Stated Complaint: head/neck pain Time Seen by Provider: 10/30/19 15:06 Source: patient Exam Limitations: no limitations - History of Present Illness Initial Comments: The patient is a 54-year-old male presented emergency room secondary to a headache and neck pain that started last night. Apparently last night around 8 PM the patient fell off of the diving board and hit his head on the bottom of a pool. No loss of consciousness. No laceration. The headache and neck pain have persisted into today. No focal neurological changes. No neurological deficits. No altered mental status. No palpable deformity. Timing/Duration: other - 16 hours Severity: moderate Improving Factors: immobilization Worsening Factors: movement Associated Symptoms: denies symptoms Allergies/Adverse Reactions: Allergies NO KNOWN ALLERGY Allergy (Verified 08/12/17 18:32) Home Medications: Ambulatory Orders amLODIPine BESYLATE [Norvasc] 10 mg PO DAILY 04/27/16 Metoprolol Succinate [Metoprolol Succinate ER] 200 mg PO 04/14/17 Indomethacin 50 mg PO TID PRN #14 cap 07/19/17 Methylprednisolone [Medrol Dose Bahman] 4 mg PO DAILY #1 tab 07/19/17 Acetamin W/Cod #3 Tab [Tylenol w/CODEINE #3] 1 ea PO Q6HR #20 tab 08/12/17 Acetaminophen W/ Codeine [Tylenol W/ CODEINE #3] 1 ea PO Q6HR #20 08/12/17 predniSONE See Taper PO DAILY #16 tab 08/12/17 Potassium Chloride [Potassium Chloride ER] 10 meq PO DAILY #14 tab 12/11/18 Prednisone 60 mg PO DAILY 5 Days #15 tab 04/11/19 Tramadol HCl 50 mg PO Q6H PRN 5 Days #15 tab 04/11/19 Acetaminophen W/ Codeine [Tylenol W/ CODEINE #3] 1 tablet PO Q6H PRN #8 09/19/19 Methylprednisolone [Medrol Dose Bahman] 4 mg PO DAILY 6 Days #21 tab 09/19/19 Tramadol HCl 100 mg PO Q8HR PRN #60 tab 10/30/19 Review of Systems - Review of Systems Constitutional: States: no symptoms reported EENTM: States: no symptoms reported Respiratory: States: no symptoms reported Cardiology: States: no symptoms reported Gastrointestinal/Abdominal: States: no symptoms reported Genitourinary: States: no symptoms reported Musculoskeletal: States: neck pain Skin: States: no symptoms reported Neurological: States: headache Endocrine: States: no symptoms reported All other Systems: No Change from Baseline Past Medical History (General) - Patient Medical History Hx Seizures: No Hx Stroke: No Hx Dementia: No Hx Asthma: No Hx of COPD: No Hx Cardiac Disorders: No Hx Congestive Heart Failure: No Hx Pacemaker: No Hx Hypertension: Yes Hx Thyroid Disease: No Hx Diabetes: No Hx Gastroesophageal Reflux: No Hx Renal Disease: No Hx Cancer: No Hx of HIV: No Hx Hepatitis C: No Hx MRSA: No MRSA Source:: Wound - Vaccination History Hx Tetanus, Diphtheria Vaccination: No Hx Influenza Vaccination: No Hx Pneumococcal Vaccination: No - Social History Hx Tobacco Use: No Hx Chewing Tobacco Use: Yes Hx Alcohol Use: No Hx Substance Use: No Hx Substance Use Treatment: No Hx Depression: No Hx Physical Abuse: No Hx Emotional Abuse: No Hx Suspected Abuse: No - Female History Patient : No Family Medical History - Family History Maternal Family History: No Known Name: mother Living Status: Cause of : cancer Hx Family Cancer: Yes - mom-lung;dad -lung,liver Paternal Family History: Unknown Name: father Living Status: Cause of : cancer Hx Family Cancer: Yes - lung and liver Physical Exam - Physical Exam General Appearance: Alert, No apparent distress Eye Exam: bilateral normal Ears, Nose, Throat: hearing grossly normal, normal pharynx Neck: other - The patient has moderate diffuse discomfort to palpation grey rrounding upper cervical spine. No definite step-off. 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 Imaging shows a nondisplaced acute left occipital condylar fracture. The patient is neurovascularly intact. The patient has been discussed with Dr. Arias, neurosurgery at [place]. The patient will be written for a hard Mcdonald collar wear. 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 He needs to follow-up with Dr. Arias tomorrow in [place]. ER warnings are given for any worsening. Tramadol will be used for pain control. Additionally he can take 2 Aleve twice daily for the next few days with food. stephanie harrison [phone] - Results/Orders Results/Orders: Chest x-ray shows no acute pathology. CT scan of the head and cervical spine show an acute left occipital condyle fracture with no displacement. See report for details. Departure - Departure Clinical Impression: Fracture of occipital condyle Qualifiers: Encounter type: initial encounter Fracture type: closed Laterality: left Qualified Code(s): S02.113A - Unspecified occipital condyle fracture, initial encounter for closed fracture Disposition: Discharge to Home or Self Care Condition: Fair Departure Forms: ED Discharge - Pt. Copy, Patient Portal Self Enrollment Instructions: DI for Closed Head Injury Diet: regular diet Activity: other Referrals: Tori Seo FNP [Primary Care Provider] - 1-2 Weeks Prescriptions: Tramadol HCl 100 mg PO Q8HR PRN #60 tab PRN Reason: Moderate Pain Home Medications: Ambulatory Orders amLODIPine BESYLATE [Norvasc] 10 mg PO DAILY 04/27/16 Metoprolol Succinate [Metoprolol Succinate ER] 200 mg PO 04/14/17 Indomethacin 50 mg PO TID PRN #14 cap 07/19/17 Methylprednisolone [Medrol Dose Bahman] 4 mg PO DAILY #1 tab 07/19/17 Acetamin W/Cod #3 Tab [Tylenol w/CODEINE #3] 1 ea PO Q6HR #20 tab 04/18/18 Acetaminophen W/ Codeine [Tylenol W/ CODEINE #3] 1 ea PO Q6HR #20 08/12/17 predniSONE See Taper PO DAILY #16 tab 08/12/17 Potassium Chloride [Potassium Chloride ER] 10 meq PO DAILY #14 tab 12/11/18 Prednisone 60 mg PO DAILY 5 Days #15 tab 04/11/19 Tramadol HCl 50 mg PO Q6H PRN 5 Days #15 tab 04/11/19 Acetaminophen W/ Codeine [Tylenol W/ CODEINE #3] 1 tablet PO Q6H PRN #8 09/19/19 Methylprednisolone [Medrol Dose Bahman] 4 mg PO DAILY 6 Days #21 tab 09/19/19 Tramadol HCl 100 mg PO Q8HR PRN #60 tab 10/30/19 Additional Instructions: The patient is a 54-year-old male presented emergency room secondary to headache and neck pain after he hit the bottom of the pool last night while diving again. Imaging shows a nondisplaced acute left occipital condylar fracture. The patient is neurovascularly intact. The patient has been discussed with Dr. Arias, neurosurgery at [place]. The patient will be written for a hard Mcdonald collar wear. 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 He needs to follow-up with Dr. Arias tomorrow in [place]. ER warnings are given for any worsening. Tramadol will be used for pain control. Additionally he can take 2 Aleve twice daily for the next few days with food.
[2019-10-30] MEDS ORDERED: HYDROCOD/APAP 7.5/325 (ER DISP) #3 TAB PO ONE (18:11)
[2019-10-30 18:38] VITALS: BP 158/82; TEMP 98.6; O2SAT 99
== END 2019-10-30 18:10 | disposition home or self-care (01) ==
LOC: ER 15:03
DX: S02.113A Unspecified occipital condyle fracture, initial encounter for closed fracture (principal); I10 Essential (primary) hypertension; R51 Headache; W16.522A Jumping or diving into swimming pool striking bottom causing other injury, initial encounter; Y92.9 Unspecified place or not applicable
CPT/HCPCS: 70450; 71045; 72125; J1885